=== PATIENT | female | born 1945 | race Caucasian/White ===

== ENCOUNTER 2021-01-10 12:26 | Outpatient (CLI) | payer MEDICARE, BC, SELFPAY ==
--- NOTE | 2021-01-10 | ECHO_ITS ---
Patient Info Name: Merly Hernández Age: 75 years : 1945 Gender: Female Ht: 64 in Wt: 163 lbs BSA: 1.85 m2 HR: 92 bpm BP: 151 / 82 mmHg Heart Rhythm: Sinus Rhythm Exam Date: 01/10/2021 1:22 PM Exam Location: [facility] Patient Status: Outpatient Admit Date: 01/10/2021 Staff Ordering Physician: OsielSreekanth MD Production Team Manager: Shauna Munoz RDCS Attending Provider: MateoSreekanth MD Exam Type: CA echo doppler color flow Study Info Indications R06.00 - Dyspnea, unspecified Complete two-dimensional, color flow and Doppler transthoracic echocardiogram is performed. Summary 1. Complete two-dimensional, color flow and Doppler transthoracic echocardiogram is performed. 2. Left ventricular chamber size, wall thickness, systolic and diastolic function are normal with no regional wall motion abnormalities with an estimated ejection fraction of 60-65%. Grade 1 diastolic dysfunction is noted. 3. There is mild tricuspid valve regurgitation. 4. No pulmonary hypertension, estimated pulmonary arterial systolic pressure is 26 mmHg. 5. Normal sinus rhythm. Left Ventricle Left ventricular chamber dimension is normal. Left ventricular systolic function is normal, estimated at 60-65%. There is no increased left ventricular wall thickness. Left ventricular septal wall motion is normal. The left ventricular diastolic function is normal. Left ventricular chamber size, wall thickness, systolic and diastolic function are normal with no regional wall motion abnormalities with an estimated ejection fraction of 60-65%. Grade 1 diastolic dysfunction is noted. Right Ventricle Right ventricular chamber dimension is normal. Right ventricular systolic function is normal. Left Atria Left atrial chamber dimension is normal. Right Atria Right atrial chamber dimension is normal. Aortic Valve The aortic valve is trileaflet. There is no aortic valve sclerosis. There is no aortic valve stenosis. There is no aortic valve regurgitation. Pulmonic Valve The pulmonic valve is normal. There is no pulmonic valve stenosis. There is no pulmonic regurgitation. Mitral Valve The mitral valve has normal leaflets. There is no mitral valve stenosis. There is trace mitral valve regurgitation. Tricuspid Valve The tricuspid valve leaflets are normal. There is no significant tricuspid valve stenosis. There is mild tricuspid valve regurgitation. No pulmonary hypertension, estimated pulmonary arterial systolic pressure is 26 mmHg. Pericardium/Pleural The pericardium appears normal. There is no pericardial effusion. Inferior Vena Cava Normal inferior vena cava with >50% collapse upon inspiration consistent with Empty right atrial pressure, 10 mmHg. Aorta The aortic root size at the sinus of Valsalva is normal. The prox ascending aorta size is normal. Left Ventricular Outflow Tract Name Value Normal LVOT 2D LVOT Diameter 1.6 cm LVOT Doppler LVOT Peak Gradient 5 mmHg LVOT Mean Gradient 2 mmHg LVOT VTI 25 cm
== END 2021-01-10 12:27 | disposition home or self-care (01) ==
PROVIDERS: PCP Internal Medicine; Visit Provider Internal Medicine
DX: R06.00 Dyspnea, unspecified (principal); I36.1 Nonrheumatic tricuspid (valve) insufficiency
CPT/HCPCS: 93306

== ENCOUNTER 2021-05-08 13:27 | Outpatient (CLI) | payer MEDICARE, BC, SELFPAY ==
--- NOTE | ~2021-05-08 | MR_ITS ---
EXAMINATION: MR brain/brain stem wo con DATE: 05/08/2021 14:27 INDICATION: Dizziness and giddiness. TECHNIQUE: Magnetic resonance imaging (MRI) of the brain and brainstem was performed without intraven ous contrast. Sequences included sagittal and axial T1-weighted FSE, axial diffusion-weighted FS EPI, axial T2*-weighted GRE, axial T2-weighted FLAIR Propeller, and axial T2-weighted Propeller. Apparent diffusion coefficient (ADC) maps were created. COMPARISON: None. FINDINGS: There are small old infarcts in left cerebellum. There is an old infarct in right caudate n ucleus. There are scattered areas of nonspecific increased T2-weighted signal intensity in the cerebr al white matter. There is no intracranial hemorrhage, acute infarction, or abnormal intracranial mass lesion. The ventricles are normal in size. There are likely changes of ocular lens replacement surge [place]. There is mild mucosal thickening in the paranasal sinuses. There are small mastoid effusions, r ight worse than left. IMPRESSION: 1. 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 2. Mild nonspecific cerebral white matter disease, which likely represents chronic small vessel ische ela disease. Reviewed, dictated and finalized at location B. UCT COORDINATOR IMPRESSION: 1. 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 2. 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
--- NOTE | ~2021-05-08 | US_ITS ---
EXAMINATION: US carotid duplex BI EXAM DATE: 05/08/2021 14:03 INDICATION: Dizziness and giddiness. TECHNIQUE: Grayscale, color and pulsed Doppler images of the cervical carotid arteries were obtained . The degree of vessel stenosis is placed in one of the following categories: normal, <50% stenosis, 50-69% stenosis, >=70% stenosis but less than near-occlusion, near-occlusion, or occlusion. Note that percent stenosis relative to normal distal artery lumen diameter is indirectly measured from velocit y measurements as described by Amando, et al. Radiology 2003; 229:340-346. There is no prior study fo r comparison. FINDINGS: RIGHT SIDE: Right common carotid artery peak systolic velocity (PSV in cm/s): 72 Right bulb/internal carotid artery peak systolic velocity (PSV in cm/s): 94 Right internal carotid artery end diastolic velocity (EDV in cm/s): 25 Right ICA/CCA peak systolic ratio: 1.3 Right external carotid artery peak systolic velocity (PSV in cm/s): 123 Right vertebral artery antegrade flow: yes There is minimal carotid bulb plaque. Velocity and Doppler waveforms in the common and internal carotid arteries is normal. LEFT SIDE: Left common carotid artery peak systolic velocity (PSV in cm/s): 89 Left bulb/internal carotid artery peak systolic velocity (PSV in cm/s): 120 Left internal carotid artery end diastolic velocity (EDV in cm/s): 37 Left ICA/CCA peak systolic ratio: 1.3 Left external carotid artery peak systolic velocity (PSV in cm/s): 135 Left vertebral artery antegrade flow: yes There is minimal carotid bulb plaque. Velocity and Doppler waveforms in the common and internal carotid arteries is normal. IMPRESSION: 1. Less than 50 percent stenosis in the right internal carotid artery. 2. Less than 50 percent stenosis in the left internal carotid artery. Reviewed, dictated and finalized at location A. EHOLD APPLIANCE MECHANIC
== END 2021-05-08 13:28 | disposition home or self-care (01) ==
LOC: ANHIMG 13:33
PROVIDERS: PCP Internal Medicine; Visit Provider Internal Medicine
DX: R42 Dizziness and giddiness (principal); R93.0 Abnormal findings on diagnostic imaging of skull and head, not elsewhere classified; I65.23 Occlusion and stenosis of bilateral carotid arteries
CPT/HCPCS: 70551; 93880

== ENCOUNTER 2024-12-31 10:45 | Outpatient (CLI) | payer MEDICARE, BC, SELFPAY ==
--- NOTE | ~2024-12-31 | CT_ITS ---
Clinical Indication: Unintentional weight loss CT Scan of the Chest, Abdomen, and Pelvis with Contrast: Technique: Contiguous sections were acquired throughout the chest, abdomen, and pelvis after intraven ous administration of 100 cc of Omnipaque 350. Dose reduction technique was used on this scan by andrea matting automated exposure control and iterative reconstruction technique. The dose-length product (DL P) was 355.63 mGy-cm. Findings: There is no evidence of any significant mediastinal, hilar or axillary lymphadenopathy. The mediastin al soft tissues and vascular structures appear normal. There is no evidence of pleural or pericardial effusion. The lungs are clear. No pulmonary nodules or infiltrates are noted. The liver, spleen, pancreas, adrenals and kidneys are within normal limits. Cholecystectomy clips are present. No evidence of aortic aneurysm. No lymphadenopathy. No bowel obstruction or bowel wall thickening. There is no evidence to suggest acute appendicitis. Urinary bladder is unremarkable. No pelvic mass seen. No ascites. Impression: No significant abnormalities seen. Reviewed, dictated and finalized at [facility]. Impression: No significant abnormalities seen.
--- OUTSIDE RECORDS SUMMARY | 2024-12-31 10:48 | XMS_ITS | Data Portability ---
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 Name Role Phone MOI ERNANDEZ Neurologist Assessment Encounter Date Assessment Date Assessment LastModified by Organization Details LastModified Time 09/08/2023 09/08/2023 Blood pressure currently controlled conservatively but she is not to take any cholesterol medicine she says I will see what Ortho has to say about her knee obtain all her old records she is actually seeking the opinion of a anil DELGADO specialist somewhere in [place] by telehealth I have asked her to get me the results of those visits if and when they occur rtc 4 months [email or web address] Not available 09/08/2023 21:52:17 12/01/2023 12/01/2023 [facility] neurology she has had a couple of community-based neurologist look at her and I think she needs a higher level of evaluation follow-up with me in 3 months [email or web address] Not available 12/01/2023 21:32:26 02/19/2024 02/19/2024 home health is out there now to do some physical therapy. She will see me in a couple of months I will await the neurologist opinion [email or web address] Not available 02/19/2024 22:55:30 10/12/2024 10/12/2024 PFTs because of her breathing difficulty modified barium swallow because of her swallowing complaints blood work will be ordered I will see her back in a month I have told her and her to call the Neurology Service at [place] [facility] where she says she was prescribed the Parkinson's medication and she needs to let them know that she is having problems apparently that physician did order EMG NCS and Merly has not perform those yet I have told her she needs to get those done she needs to let Neurology know what is going on in the fact that she stopped her Sinemet her blood pressure is controlled [email or web address] Not available 10/12/2024 13:35:33 Plan of Treatment Reminders Order Date Submit Date Provider Last Modified By Organization Details Last Modified Time Details Appointments None recorded. Lab ej Ab, qual, serum 2024 025 [facility], [address] [place] [address] 2, [place], [address], 15:12:25 MDA5 Ab, QN, line blot, serum 2024 025 [facility], [address] [place] [address] 2, [place], [address], 5 15:12:24 MIREILLE (antinucle ar antibodies ) screen, ifa, serum 2024 025 [facility], [address] [place] [address] 2, [place], [address], 5 15:12:19 unlisted lab - AChR all with reflex to musk 2024 025 [facility], [address] [place] [address] 2, [place], [address], 12:19:54 unlisted lab - AChR abs with reflex to musk 2024 025 [facility], [address] [place] [address] 2, [place], [address], 5 15:12:20 heavy metals panel, 24h urine 2024 025 [facility], [address] [place] [address] 2, [place], [address], 5 12:19:45 erythrocyt e sedimentat ion rate by westergren method 2024 025 [facility], [address] [facility], [facility] 2, [place], [address], 15:12:28 C reactive protein, QN, serum or plasma 2024 025 [facility], [facility], [facility] 2, [place], [address], 15:12:29 lipid panel, serum 2024 025 [facility], [facility], [facility] 2, [place], [address], 15:12:21 CMP, serum or plasma 2024 025 [facility], [facility], [facility] 2, [place], [address], 15:12:23 CBC w/ auto diff 2024 025 [facility], [address] [place] [address], [facility] 2, [place], [address], 15:12:27 unlisted lab - T4, free 2024 025 [facility], [address] [place] [address], [facility] 2, [place], [address], 15:12:22 TSH, ultra-sens itive, serum 2024 025 [facility], [address] [place] [address], [facility] 2, [place], [address], 15:12:26 T3, free, serum or plasma 2024 025 [facility], [facility], [facility] 2, [place], [address], 15:12:31 Referral None recorded. Procedures None recorded. Surgeries None recorded. Imaging [place], modified barium swallow study 2024 025 [facility], [address], [place], [address], 16:28:12 PFT, complete - With [facility] 2024 025 [facility], [address], [place], [address], 16:28:12 Medication Orders None recorded. Patient TargetsNo targets recorded. Patient Instructions Encounter Date Encounter Id Patient Instructions Last Modified By Organization Details Last Modified Time 10/12/2024 [id number] A healthy lifestyle: care instructions [email or web address] Not available 10/12/2024 13:16:19 Reason for Referral None Reported. 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 [facility] Not Available Not Available 10/12/2024 09:08:29 07/23/1907/23/2024 Magne sium [Mass /volu me] in Serum or Plasm a magnesium [mass/volume ] in serum or plasma 1.9 text: 1.8 - 2.4 mg/dL MAGNE SIUM 1.9 1.8 - 2.4 MG/DL 07/23 3:39 PM LAND SURVEYING MANAGER [facility] Not Available Not Available 10/12/2024 09:08:28 07/23/19 25 07/23/2024 Salic ylate s [Mass /volu me] in Serum or Plasm a salicylates [mass/volume ] in serum or plasma 0.8 text: mg/dL SALIC YLATE S 0.8 MG/DL 07/23 3:29 PM LAND SURVEYING MANAGER [facility] Not Available Not Available 10/12/2024 09:08:28 09/22/19 25 09/21/2024 Urina lysis macro (dips tick) panel - Urine color of urine YELLOW text: yellow COLOR (U) YELLO W YELLO W 09/21 6:59 PM CDT [facility] Not Available Not Available 10/12/2024 09:08:29 09/22/19 25 09/21/2024 Urina lysis macro (dips tick) panel - Urine clarity of urine CLEAR text: clear TRANS PAREN CY CLEAR CLEAR 09/21 6:59 PM CDT [facility] Not Available Not Available 10/12/2024 09:08:29 09/22/19 25 09/21/2024 Urina lysis macro (dips tick) panel - Urine specific gravity of urine 1.02 low: 1.01hi gh: 1.025 SPECI FIC GRAVI TY (U) 1.020 1.010 - 1.025 09/21 6:59 PM CDT [facility] Not Available Not Available 10/12/2024 09:08:29 09/22/19 25 09/21/2024 Urina lysis macro (dips tick) panel - Urine pH of urine 6 low: 5high: 8.5 U PH 6.0 5.0 - 8.5 09/21 6:59 PM CDT [facility] Not Available Not Available 10/12/2024 09:08:29 09/22/19 25 09/21/2024 Urina lysis macro (dips tick) panel - Urine leukocyte esterase [presence] in urine by test strip TRACE text: negati ve abnormal LEUKO CYTES (U) TRACE (A) NEGAT JAREN 09/21 6:59 PM CDT [facility] Not Available Not Available 10/12/2024 09:08:29 09/22/19 25 09/21/2024 Urina lysis macro (dips tick) panel - Urine nitrite [presence] in urine by test strip NEGATI VE text: negati ve NITRI EDDIE NEGAT JAREN NEGAT JAREN 09/21 6:[address] [facility] Not Available Not Available 10/12/2024 09:08:29 09/22/19 25 09/21/2024 Urina lysis macro (dips tick) panel - Urine protein [presence] in urine by automated test strip NEGATI VE text: negati ve PROTE IN RANDO M (U) NEGAT JAREN NEGAT JAREN 09/21 6:59 PM CDT [facility] Not Available Not Available 10/12/2024 09:08:29 09/22/19 25 09/21/2024 Urina lysis macro (dips tick) panel - Urine glucose [presence] in urine by automated test strip NEGATI VE text: negati ve GLUCO SE (U) NEGAT JAREN NEGAT JAREN 09/21 6:[address] [facility] Not Available Not Available 10/12/2024 09:08:29 09/22/19 25 09/21/2024 Urina lysis macro (dips tick) panel - Urine ketones [presence] in urine by automated test strip 80 text: negati ve abnormal KETON ES MG/DL (U) 80 (A) NEGAT JAREN 09/21 6:[address] [facility] Not Available Not Available 10/12/2024 09:08:29 09/22/19 25 09/21/2024 Urina lysis macro (dips tick) panel - Urine urobilinogen [units/volum e] in urine by test strip 0.2 text: 0.2 - 1.0 eu/dL UROBI LINOG EN 0.2 0.2 - 1.0 EU/DL 09/21 6:59 PM CDT [facility] Not Available Not Available 10/12/2024 09:08:29 09/22/19 25 09/21/2024 Urina lysis macro (dips tick) panel - Urine bilirubin.to abiola [presence] in urine by automated test strip NEGATI VE text: negati ve BILIR UBIN (U) NEGAT JAREN NEGAT JAREN 09/21 6:59 PM CDT [facility] Not Available Not Available 10/12/2024 09:08:29 09/22/1909/21/2024 Urina lysis macro (dips tick) panel - Urine erythrocytes [#/volume] in urine by automated test strip NEGATI VE text: negati ve BLOOD (U) NEGAT JAREN NEGAT JAREN 09/21 6:59 PM CDT [facility] Not Available Not Available 10/12/2024 09:08:29 09/22/1909/21/2024 Urina lysis macro (dips tick) panel - Urine interpretati on and review of laboratory results Abnorm al Not Available Not Available 09:08:29 09/22/1909/21/2024 Lacta te [Mole s/vol ume] in Serum or Plasm a lactate [moles/volum e] in serum or plasma 1.4 text: 0.5 - 2.0 mmol/L LACTI C ACID VENOU S 1.4 0.5 - 2.0 MMOL/ L 09/21 5:28 PM CDT [facility] Not Available Not Available 10/12/2024 09:08:29 09/22/1909/21/2024 Natri ureti c pepti de.B proho rmone N-Ter nicol [Mass /volu me] in Serum or Plasm a natriuretic peptide.B prohormone N-terminal [mass/volume ] in serum or plasma 76 pg/mL low: 0pg/mL high: 450pg/ mL PRO-B RAIN NATRI URETI C PEPTI DE 76 0 - 450 PG/ML 09/21 5:29 PM CDT [facility] Not Available Not Available 10/12/2024 09:08:29 09/22/1909/21/2024 Respi rator y syncy tial virus Ag [Pres ence] in Speci men by Immun oassa y specimen source identified JOSE CHAVARRIA AL SWAB SPECI MEN TYPE NASOP HARYN GEAL SWAB 09/21 4:57 PM CDT [facility] Not Available Not Available 10/12/2024 09:08:28 09/22/19 25 09/21/2024 Respi rator y syncy tial virus Ag [Pres ence] in Speci men by Immun oassa y respiratory syncytial virus Ag [presence] in specimen by immunofluore scence NEGATI VE text: negati ve RAPID RSV NEGAT JAREN NEGAT JAREN 09/21 5:29 PM CDT [facility] Not Available Not Available 10/12/2024 09:08:28 09/22/19 25 09/21/2024 Compr ehens jaren metab olic 2000 panel - Serum or Plasm a glucose [mass/volume ] in serum or plasma 101 text: 70 - 99 mg/dL high GLUCO SE 101 (H) 70 - 99 MG/DL 09/21 5:29 PM CDT [facility] Not Available Not Available 10/12/2024 09:08:28 09/22/19 25 09/21/2024 Compr ehens jaren metab olic 2000 panel - Serum or Plasm a urea nitrogen [mass/volume ] in serum or plasma 12 text: 7 - 18 mg/dL BUN 12 7 - 18 MG/DL 09/21 5:29 PM CDT [facility] Not Available Not Available 10/12/2024 09:08:28 09/22/19 25 09/21/2024 Compr ehens jaren metab olic 2000 panel - Serum or Plasm a creatinine [mass/volume ] in serum or plasma 0.74 text: 0.50 - 1.20 mg/dL CREAT ININE S/P/B 0.74 0.50 - 1.20 MG/DL 09/21 5:29 PM CDT [facility] Not Available Not Available 10/12/2024 09:08:28 09/22/19 25 09/21/2024 Compr ehens jaren metab olic 2000 panel - Serum or Plasm a sodium [moles/volum e] in serum or plasma 138 text: 136 - 145 mmol/L SODIU M S/P/B 138 136 - 145 MMOL/ L 09/21 5:29 PM CDT [facility] Not Available Not Available 10/12/2024 09:08:28 09/22/19 25 09/21/2024 Compr ehens jaren metab olic 1999 panel - Serum or Plasm a potassium [moles/volum e] in serum or plasma 3.8 text: 3.5 - 5.1 mmol/L POTAS SIUM S/P/B 3.8 3.5 - 5.1 MMOL/ L 09/21 5:29 PM CDT [facility] Not Available Not Available 10/12/2024 09:08:28 09/22/19 25 09/21/2024 Compr ehens jaren metab olic 1999 panel - Serum or Plasm a chloride [moles/volum e] in serum or plasma 103 text: 100 - 108 mmol/L CHLOR JEFFY S/P/B 103 100 - 108 MMOL/ L 09/21 5:29 PM CDT [facility] Not Available Not Available 10/12/2024 09:08:28 09/22/19 25 09/21/2024 Compr ehens jaren metab olic 1999 panel - Serum or Plasm a carbon dioxide, total [moles/volum e] in serum or plasma 28 text: 21.0 - 32.0 mmol/L CO2 28.0 21.0 - 32.0 MMOL/ L 09/21 5:29 PM CDT [facility] Not Available Not Available 10/12/2024 09:08:28 09/22/19 25 09/21/2024 Compr ehens jaren metab olic 1999 panel - Serum or Plasm a calcium [mass/volume ] in serum or plasma 9.1 text: 8.5 - 10.1 mg/dL CALCI UM S/P/B 9.1 8.5 - 10.1 MG/DL 09/21 5:29 PM CDT [facility] Not Available Not Available 10/12/2024 09:08:28 09/22/19 25 09/21/2024 Compr ehens jaren metab olic 2000 panel - Serum or Plasm a bilirubin.to abiola [mass/volume ] in serum or plasma 0.7 text: 0.2 - 1.2 mg/dL BILIR UBIN TOTAL S/P/B 0.7 0.2 - 1.2 MG/DL 09/21 5:29 PM CDT [facility] [employer] [facility] Not Available Not Available 10/12/2024 09:08:28 09/22/19 25 09/21/2024 Compr AT [employer] jaren metab olic 1999 panel - Serum or Plasm a protein [mass/volume ] in serum or plasma 7.2 text: 6.4 - 8.2 g/dL TOTAL PROTE IN S/P/B 7.2 6.4 - 8.2 G/DL 09/21 5:29 PM CDT [facility] Not Available Not Available 10/12/2024 09:08:28 09/22/1909/21/2024 Compr AT [employer] jaren metab olic 1999 panel - Serum or Plasm a albumin [mass/volume ] in serum or plasma 3.3 text: 3.4 - 5.0 g/dL low ALBUM IN S/P/B 3.3 (L) 3.4 - 5.0 G/DL 09/21 5:29 PM CDT [facility] [employer] [facility] Not Available Not Available 10/12/2024 09:08:28 09/22/1909/21/2024 Compr AT [employer] jaren metab olic 1999 panel - Serum or Plasm a aspartate aminotransfe rase [enzymatic activity/vol ume] in serum or plasma 24 U/L low: 15U/Lh igh: 37U/L AST 24 15 - 37 U/L 09/21 5:29 PM CDT [facility] Not Available Not Available 10/12/2024 09:08:28 09/22/19 25 09/21/2024 Compr AT [employer] jaren metab olic 1999 panel - Serum or Plasm a alanine aminotransfe rase [enzymatic activity/vol ume] in serum or plasma 25 U/L low: 14U/Lh igh: 55U/L ALT 25 14 - 55 U/L 04/08 /2025 5:29 PM CDT [facility] Not Available Not Available 10/12/2024 09:08:28 09/22/19 25 09/21/2024 Compr ehens jaren metab olic 1999 panel - Serum or Plasm a alkaline phosphatase [enzymatic activity/vol ume] in serum or plasma 89 U/L low: 50U/Lh igh: 136U/L ALKAL INE PHOSP HATAS E S/P/B 89 50 - 136 U/L 09/21 5:29 PM CDT [facility] Not Available Not Available 10/12/2024 09:08:28 09/22/19 25 09/21/2024 Compr ehens jaren metab olic 1999 panel - Serum or Plasm a anion gap in serum or plasma by calculation 7 text: 5.0 - 15.0 mmol/L ANION GAP 7.0 5.0 - 15.0 MMOL/ L 09/21 5:29 PM CDT [facility] Not Available Not Available 10/12/2024 09:08:28 09/22/19 25 09/21/2024 Compr ehens jaren metab olic 1999 panel - Serum or Plasm a urea nitrogen/cre atinine [mass ratio] in serum or plasma 16.2 low: 6high: 26 BUN CREAT ININE RATIO 16.2 6 - 26 09/21 5:29 PM CDT [facility] Not Available Not Available 10/12/2024 09:08:28 09/22/19 25 09/21/2024 Compr ehens jaren metab olic 1999 panel - Serum or Plasm a albumin/glob ulin [mass ratio] in serum or plasma 0.8 text: 1.0 - 2.5 ratio low A/G RATIO 0.8 (L) 1.0 - 2.5 RATIO 09/21 5:29 PM CDT [facility] Not Available Not Available 10/12/2024 09:08:28 09/22/19 25 09/21/2024 Compr ehens jaren metab olic 2000 panel - Serum or Plasm a glomerular filtration rate [volume rate/area] in serum, plasma or blood by creatinine-b ased formula (CKD-epi 2020)/1.73 sq M 82 text: >90 mL/min /1.73 M2 low GFR ESTIM ATE 82 (L) >90 ML/OR N/1.7 3 M2 09/21 5:29 PM CDT [facility] Not Available Not Available 10/12/2024 09:08:28 09/22/1909/21/2024 Compr ehens jaren metab olic 2000 panel - Serum or Plasm a interpretati on and review of laboratory results Abnorm al Not Available Not Available 09:08:28 09/22/1909/21/2024 CBC W Auto Diffe renti al panel - Blood leukocytes [#/volume] in blood by automated count 5.39 text: 4.50 - 11.00 x10'3/ uL WBC 5.39 4.50 - 11.00 x10'3 /uL 09/21 5:04 PM CDT [facility] Not Available Not Available 10/12/2024 09:08:28 09/22/1909/21/2024 CBC W Auto Diffe renti al panel - Blood erythrocytes [#/volume] in blood by automated count 5.04 text: 4.00 - 5.20 x10'6/ uL RBC 5.04 4.00 - 5.20 x10'6 /uL 09/21 5:04 PM CDT [facility] Not Available Not Available 10/12/2024 09:08:28 09/22/1909/21/2024 CBC W Auto Diffe renti al panel - Blood hemoglobin [mass/volume ] in blood 15.6 text: 12.0 - 16.0 g/dL HGB 15.6 12.0 - 16.0 G/DL 09/21 5:04 PM CDT [facility] Not Available Not Available 10/12/2024 09:08:28 09/22/1909/21/2024 CBC W Auto Diffe renti al panel - Blood hematocrit [volume fraction] of blood by calculation 46.1 % low: 38%hig h: 48% HCT 46.1 38.0 - 48.0 % 09/21 5:04 PM CDT [facility] Not Available Not Available 10/12/2024 09:08:28 09/22/1909/21/2024 CBC W Auto Diffe renti al panel - Blood MCV [entitic mean volume] in red blood cells 91.5 text: 80.0 - 100.0 fL MCV 91.5 80.0 - 100.0 FL 09/21 5:04 PM CDT [facility] Not Available Not Available 10/12/2024 09:08:28 09/22/19 25 09/21/2024 CBC W Auto Diffe renti al panel - Blood MCH [entitic mass] 31 pg low: 26pghi gh: 34pg MCH 31.0 26.0 - 34.0 PG 09/21 5:04 PM CDT [facility] Not Available Not Available 10/12/2024 09:08:28 09/22/1909/21/2024 CBC W Auto Diffe renti al panel - Blood MCHC [entitic mass/volume] in red blood cells 33.8 text: 31.0 - 37.0 g/dL MCHC 33.8 31.0 - 37.0 G/DL 09/21 5:04 PM CDT [facility] Not Available Not Available 10/12/2024 09:08:28 09/22/1909/21/2024 CBC W Auto Diffe renti al panel - Blood RDW 12.5 % low: 11.6%h igh: 14.8% RDW 12.5 11.6 - 14.8 % 09/21 5:04 PM CDT [facility] Not Available Not Available 10/12/2024 09:08:28 09/22/19 25 09/21/2024 CBC W Auto Diffe renti al panel - Blood platelets [#/volume] in blood 143 text: 130 - 400 x10'3/ uL PLT 143 130 - 400 x10'3 /uL 09/21 5:04 PM CDT [facility] Not Available Not Available 10/12/2024 09:08:28 09/22/19 25 09/21/2024 CBC W Auto Diffe renti al panel - Blood platelet [entitic mean volume] in blood 9.7 text: 7.0 - 12.0 fL MPV 9.7 7.0 - 12.0 FL 09/21 5:04 PM CDT [facility] Not Available Not Available 10/12/2024 09:08:28 09/22/19 25 09/21/2024 CBC W Auto Diffe renti al panel - Blood service comment AUTOMA DEB RBC MORPHO LOGY AND PLATEL ET EVALUA TION NORMAL CBC COMME NT AUTOM ATED RBC MORPH OLOGY AND PLATE LET EVALU ATION ANTONIO L 09/21 5:04 PM CDT [facility] Not Available Not Available 10/12/2024 09:08:28 09/22/1909/21/2024 CBC W Auto Diffe renti al panel - Blood neutrophils/ leukocytes in blood by automated count 43.9 % low: 40%hig h: 74% NEUTR OPHIL S % 43.9 40.0 - 74.0 % 09/21 5:04 PM CDT [facility] Not Available Not Available 10/12/2024 09:08:28 09/22/19 25 09/21/2024 CBC W Auto Diffe renti al panel - Blood lymphocytes/ leukocytes in blood by automated count 36.9 % low: 14%hig h: 46% LYMPH OCYTE S % 36.9 14.0 - 46.0 % 09/21 5:04 PM CDT [facility] Not Available Not Available 10/12/2024 09:08:28 09/22/1909/21/2024 CBC W Auto Diffe renti al panel - Blood monocytes/le ukocytes in blood by automated count 14.3 % low: 4%high : 13% high MONOC YTES % 14.3 (H) 4.0 - 13.0 % 09/21 5:04 PM CDT [facility] Not Available Not Available 10/12/2024 09:08:28 09/22/19 25 09/21/2024 CBC W Auto Diffe renti al panel - Blood eosinophils/ leukocytes in blood by automated count 3.5 % low: 0%high : 7% EOSIN OPHIL S 3.5 0.0 - 7.0 % 09/21 5:04 PM CDT [facility] Not Available Not Available 10/12/2024 09:08:28 09/22/19 25 09/21/2024 CBC W Auto Diffe renti al panel - Blood basophils/le ukocytes in blood by automated count 0.7 % low: 0%high : 3% BASOP HILS 0.7 0.0 - 3.0 % 09/21 5:04 PM CDT [facility] Not Available Not Available 10/12/2024 09:08:28 09/22/19 25 09/21/2024 CBC W Auto Diffe renti al panel - Blood immature granulocytes /leukocytes in blood by automated count 0.7 % low: 0%high : 0.43% high IMMAT URE GRANS % 0.7 (H) 0.0 - 0.43 % 09/21 5:04 PM CDT [facility] Not Available Not Available 10/12/2024 09:08:28 09/22/19 25 09/21/2024 CBC W Auto Diffe renti al panel - Blood nucleated erythrocytes /leukocytes [ratio] in blood 0 % NRBC % 0.0 % 09/21 5:04 PM CDT [facility] Not Available Not Available 10/12/2024 09:08:28 09/22/19 25 09/21/2024 CBC W Auto Diffe renti al panel - Blood neutrophils [#/volume] in blood 2.36 text: 1.69 - 7.81 x10'3/ uL ABS. NEUTR OPHIL S TOTAL 2.36 1.69 - 7.81 x10'3 /uL 09/21 5:04 PM CDT [facility] Not Available Not Available 10/12/2024 09:08:28 09/22/19 25 09/21/2024 CBC W Auto Diffe renti al panel - Blood lymphocytes [#/volume] in blood 1.99 text: 0.21 - 5.42 x10'3/ uL ABS. LYMPH OCYTE S 1.99 0.21 - 5.42 x10'3 /uL 09/21 5:04 PM CDT [facility] Not Available Not Available 10/12/2024 09:08:28 09/22/19 25 09/21/2024 CBC W Auto Diffe renti al panel - Blood monocytes [#/volume] in blood 0.77 text: 0.04 - 1.37 x10'3/ uL ABS. MONOC YTES 0.77 0.04 - 1.37 x10'3 /uL 09/21 5:04 PM CDT [facility] Not Available Not Available 10/12/2024 09:08:28 09/22/1909/21/2024 CBC W Auto Diffe renti al panel - Blood eosinophils [#/volume] in blood 0.19 text: 0.00 - 0.68 x10'3/ uL ABS. EOSIN OPHIL S 0.19 0.00 - 0.68 x10'3 /uL 09/21 5:04 PM CDT [facility] Not Available Not Available 10/12/2024 09:08:28 09/22/1909/21/2024 CBC W Auto Diffe renti al panel - Blood basophils [#/volume] in blood 0.04 text: 0.00 - 0.08 x10'3/ uL ABS. BASOP HILS 0.04 0.00 - 0.08 x10'3 /uL 09/21 5:04 PM CDT [facility] Not Available Not Available 10/12/2024 09:08:28 09/22/19 25 09/21/2024 CBC W Auto Diffe renti al panel - Blood immature granulocytes [#/volume] in blood 0.04 text: 0.00 - 0.06 x10'3/ uL ABS. IMMAT URE GRANU LOCYT ES 0.04 0.00 - 0.06 x10'3 /uL 09/21 5:04 PM CDT [facility] Not Available Not Available 10/12/2024 09:08:28 09/22/1909/21/2024 CBC W Auto Diffe renti al panel - Blood nucleated erythrocytes [#/volume] in blood 0 text: 0.00 - 0.01 x10'3/ uL ABS. NUCLE ATED RBC'S 0.00 0.00 - 0.01 x10'3 /uL 09/21 5:04 PM CDT [facility] Not Available Not Available 10/12/2024 09:08:28 09/22/1909/21/2024 CBC W Auto Diffe renti al panel - Blood interpretati on and review of laboratory results Abnorm al Not Available Not Available 09:08:28 10/13/1910/13/2024 MIREILLE BY IFA RFX TITER /CHRISTOFER GARCÍA MIREILLE by ifa rfx titer/patter n NEGATI VE Negat jaren <1:80 Borde rline 1:80 Posit jaren >1:80 ICAP nomen anahi re: AC-0 For more infor tracee n about Hep-2 cell patte rns use ANApa ttern s.org , the offic ial websi te for the Inter natio nal Conse nsus on Antin uclea r Antib liliana (MIREILLE) Patte rns (ICAP ). Not Available [facility] [address] [place] [address], [address], 11/03/2024 15:12:18 10/13/19 25 10/17/2024 ACHR ABS WITH REFLE X TO MUSK AChR binding abs, serum <0.07 nmol/ L 0.00-0 .24 Negat jaren: 0.00 - 0.24 Borde rline : 0.25 - 0.40 Posit jaren: >0.40 Not Available [facility] [address] [place], [address], 11/03/2024 15:12:19 10/13/19 25 10/18/2024 ACHR ALL WITH REFLE X TO MUSK AChR blocking abs, serum 19 % 0-25 Negat jaren: 0 - 25 Borde rline : 26 - 30 Posit jaren: >30 Not Available [facility] [address] [place], [address], 11/03/2024 15:12:21 10/13/19 25 10/18/2024 ACHR ALL WITH REFLE X TO MUSK AChR-modulat ing Ab 0 % 0-45 Inter preti ve Infor matio n: Negat jaren: 0 - 45% Posit jaren: > 45% No singl e value for AChR- modul ating antib liliana shoul d be used as a sole basis for diagn osis or respo nse to thera py. Not Available [facility] [address] [place], [address], 11/03/2024 15:12:21 10/13/19 25 10/18/2024 ACHR ALL WITH REFLE X TO MUSK reflex information Commen t Refle x test indic ated. Not Available [facility] [address] [place], [address], 11/03/2024 15:12:21 10/13/19 25 10/13/2024 LIPID PANEL cholesterol, total 213 mg/dL 100-19 9 above high normal Not Available [facility] [address] [place], [address], 11/03/2024 15:12:21 10/13/19 25 10/13/2024 LIPID PANEL triglyceride s 133 mg/dL 0-149 Not Available [facility] [address] [place], [address], 11/03/2024 15:12:21 10/13/19 25 10/13/2024 LIPID PANEL HDL cholesterol 75 mg/dL >39 Not Available [facility] [address] [place], [address], 11/03/2024 15:12:21 10/13/19 25 10/13/2024 LIPID PANEL VLDL cholesterol juan pablo 23 mg/dL 5-40 Not Available [facility] [address] [place], [address], 11/03/2024 15:12:21 10/13/19 25 10/13/2024 LIPID PANEL LDL chol calc ([facility]) 115 mg/dL 0-99 above high normal Not Available [facility] [address] [place], [address], 11/03/2024 15:12:21 10/13/19 25 10/13/2024 T4, FREE T4,free(dire ct) 1.43 NG/dL 0.82-1 .77 Not Available [facility] [address] [place] [address], [address], 11/03/2024 15:12:22 10/13/19 25 10/13/2024 COMP. METAB OLIC PANEL (14) glucose 97 mg/dL 70-99 Not Available [facility] [address] [place] [address], [address], 11/03/2024 15:12:23 10/13/19 25 10/13/2024 COMP. METAB OLIC PANEL (14) BUN 13 mg/dL 8-27 Not Available [facility] [address] [place] [address], [address], 11/03/2024 15:12:23 10/13/19 25 10/13/2024 COMP. METAB OLIC PANEL (14) creatinine 0.66 mg/dL 0.57-1 .00 Not Available [facility] [address] [place], [address], 11/03/2024 15:12:23 10/13/19 25 10/13/2024 COMP. METAB OLIC PANEL (14) eGFR 89 mL/mi n/1.7 3 >59 Not Available [facility] [address] [place], [address], 11/03/2024 15:12:23 10/13/19 25 10/13/2024 COMP. METAB OLIC PANEL (14) BUN/creatini ne ratio 20 12-28 Not Available [facility] [address] [place], [address], 11/03/2024 15:12:23 10/13/19 25 10/13/2024 COMP. METAB OLIC PANEL (14) sodium 144 mmol/ L 134-14 4 Not Available [facility] [address] [place], [address], 11/03/2024 15:12:23 10/13/19 25 10/13/2024 COMP. METAB OLIC PANEL (14) potassium 3.7 mmol/ L 3.5-5. 2 Not Available [facility] [address] [place], [address], 11/03/2024 15:12:23 10/13/19 25 10/13/2024 COMP. METAB OLIC PANEL (14) chloride 105 mmol/ L 96-106 Not Available [facility] [address] [place], [address], 11/03/2024 15:12:23 10/13/19 25 10/13/2024 COMP. METAB OLIC PANEL (14) carbon dioxide, total 20 mmol/ L 20-29 Not Available [facility] [address] [place], [address], 11/03/2024 15:12:23 10/13/19 25 10/13/2024 COMP. METAB OLIC PANEL (14) calcium 10.0 mg/dL 8.7-10 .3 Not Available [facility] [address] [place], [address], 11/03/2024 15:12:23 04/29/20 25 10/13/2024 COMP. METAB OLIC PANEL (14) protein, total 7.4 g/dL 6.0-8. 5 Not Available [facility] [address] [place], [address], 11/03/2024 15:12:23 10/13/19 25 10/13/2024 COMP. METAB OLIC PANEL (14) albumin 4.4 g/dL 3.8-4. 8 Not Available [facility] [address] [place], [address], 11/03/2024 15:12:23 10/13/19 25 10/13/2024 COMP. METAB OLIC PANEL (14) globulin, total 3.0 g/dL 1.5-4. 5 Not Available [facility] [address] [place], [address], 11/03/2024 15:12:23 10/13/19 25 10/13/2024 COMP. METAB OLIC PANEL (14) bilirubin, total 0.7 mg/dL 0.0-1. 2 Not Available [facility] [address] [place], [address], 11/03/2024 15:12:23 10/13/19 25 10/13/2024 COMP. METAB OLIC PANEL (14) alkaline phosphatase 101 IU/L 44-121 Not Available [facility] [address] [place], [address], 11/03/2024 15:12:23 10/13/19 25 10/13/2024 COMP. METAB OLIC PANEL (14) AST (SGOT) 14 IU/L 0-40 Not Available [facility] [address] [place], [address], 11/03/2024 15:12:23 10/13/19 25 10/13/2024 COMP. METAB OLIC PANEL (14) ALT (SGPT) 13 IU/L 0-32 Not Available [facility] [address] [place], [address], 11/03/2024 15:12:23 10/13/19 25 10/23/2024 MUSK ABS, SERUM musk abs, serum <1.0 Refer ence Range : Negat jaren: <1.0 Posit jaren: 1.0 or highe r This test was lidia gutierrez and its perfo rmanc e sherwin cteri stics deter mined by [facility]. It has not been clear ed or appro ian by the Food and Drug Admin istra tion. Not Available [facility] [address] [place], [address], 11/03/2024 15:12:24 10/13/19 25 10/16/2024 ANTI- MDA-5 AB (CADM -140) (RDL) anti-mda-5 Ab (cadm-140)(r dl) <20 units <20 Negat jaren: <20 Weak Posit jaren: 20 - 39 Moder ate Posit jaren: 40 - 80 Stron g Posit jaren: >80 Not Available [facility] [address] [place], [address], 11/03/2024 15:12:24 10/13/19 25 11/03/2024 ANTI- EJ AB (RDL) anti-ej Ab (rdl) NEGATI VE negati ve Not Available [facility] [address] [place], [address], 11/03/2024 15:12:25 10/13/19 25 10/13/2024 TSH TSH 1.290 uIU/m L 0.450- 4.500 Not Available [facility] [address] [place], [address], 11/03/2024 15:12:26 10/13/19 25 10/13/2024 CBC WITH DIFFE RENTI AL/PL ATELE T WBC 9.7 x10e3 /uL 3.4-10 .8 Not Available [facility] [address] [place], [address], 11/03/2024 15:12:27 10/13/19 25 10/13/2024 CBC WITH DIFFE RENTI AL/PL ATELE T RBC 5.52 x10e6 /uL 3.77-5 .28 above high normal Not Available [facility] [address] [place], [address], 11/03/2024 15:12:27 10/13/19 25 10/13/2024 CBC WITH DIFFE RENTI AL/PL ATELE T hemoglobin 17.0 g/dL 11.1-1 5.9 above high normal Not Available [facility] [address] [place], [address], 11/03/2024 15:12:27 10/13/19 25 10/13/2024 CBC WITH DIFFE RENTI AL/PL ATELE T hematocrit 51.9 % 34.0-4 6.6 above high normal Not Available [facility] [address] [place], [address], 11/03/2024 15:12:27 10/13/19 25 10/13/2024 CBC WITH DIFFE RENTI AL/PL ATELE T MCV 94 fL 79-97 Not Available [facility] [address] [place], [address], 11/03/2024 15:12:27 10/13/19 25 10/13/2024 CBC WITH DIFFE RENTI AL/PL ATELE T MCH 30.8 pg 26.6-3 3.0 Not Available [facility] [address] [place], [address], 11/03/2024 15:12:27 10/13/19 25 10/13/2024 CBC WITH DIFFE RENTI AL/PL ATELE T MCHC 32.8 g/dL 31.5-3 5.7 Not Available [facility] [address] [place], [address], 11/03/2024 15:12:27 10/13/19 25 10/13/2024 CBC WITH DIFFE RENTI AL/PL ATELE T RDW 12.6 % 11.7-1 5.4 Not Available [facility] [address] [place], [address], 11/03/2024 15:12:27 10/13/19 25 10/13/2024 CBC WITH DIFFE RENTI AL/PL ATELE T platelets 213 x10e3 /uL 150-45 0 Not Available [facility] [address] [place], [address], 11/03/2024 15:12:27 10/13/19 25 10/13/2024 CBC WITH DIFFE RENTI AL/PL ATELE T neutrophils 71 % notest ab. Not Available [facility] [address] [place], [address], 11/03/2024 15:12:27 10/13/19 25 10/13/2024 CBC WITH DIFFE RENTI AL/PL ATELE T lymphs 16 % notest ab. Not Available [facility] [address] [place], [address], 11/03/2024 15:12:27 10/13/19 25 10/13/2024 CBC WITH DIFFE RENTI AL/PL ATELE T monocytes 11 % notest ab. Not Available [facility] [address] [place], [address], 11/03/2024 15:12:27 10/13/19 25 10/13/2024 CBC WITH DIFFE RENTI AL/PL ATELE T eos 1 % notest ab. Not Available [facility] [address] [place], [address], 11/03/2024 15:12:27 10/13/19 25 10/13/2024 CBC WITH DIFFE RENTI AL/PL ATELE T basos 1 % notest ab. Not Available [facility] [address] [place], [address], 11/03/2024 15:12:27 10/13/19 25 10/13/2024 CBC WITH DIFFE RENTI AL/PL ATELE T neutrophils (absolute) 6.9 x10e3 /uL 1.4-7. 0 Not Available [facility] [address] [place], [address], 11/03/2024 15:12:27 10/13/19 25 10/13/2024 CBC WITH DIFFE RENTI AL/PL ATELE T lymphs (absolute) 1.6 x10e3 /uL 0.7-3. 1 Not Available [facility] [address] [place], [address], 11/03/2024 15:12:27 10/13/19 25 10/13/2024 CBC WITH DIFFE RENTI AL/PL ATELE T monocytes(ab solute) 1.0 x10e3 /uL 0.1-0. 9 above high normal Not Available [facility] [address] [place], [address], 11/03/2024 15:12:27 10/13/19 25 10/13/2024 CBC WITH DIFFE RENTI AL/PL ATELE T eos (absolute) 0.1 x10e3 /uL 0.0-0. 4 Not Available [facility] [address] [place], [address], 11/03/2024 15:12:27 10/13/19 25 10/13/2024 CBC WITH DIFFE RENTI AL/PL ATELE T baso (absolute) 0.1 x10e3 /uL 0.0-0. 2 Not Available [facility] [address] [place], [address], 11/03/2024 15:12:27 10/13/19 25 10/13/2024 CBC WITH DIFFE RENTI AL/PL ATELE T immature granulocytes 0 % notest ab. Not Available [facility] [address] [place], [address], 11/03/2024 15:12:27 10/13/19 25 10/13/2024 CBC WITH DIFFE RENTI AL/PL ATELE T immature grans (abs) 0.0 x10e3 /uL 0.0-0. 1 Not Available [facility] [address] [place], [address], 11/03/2024 15:12:27 10/13/19 25 10/13/2024 SEDIM ENTAT ION RATE- WESTE RGREN sedimentatio n rate-westerg angela 22 mm/HR 0-40 Not Available [facility] [address] [place], [address], 11/03/2024 15:12:28 10/13/19 25 10/13/2024 C-ELIDA CTIVE PROTE IN, QUANT C-reactive protein, quant <1 Not Available [facility] [address] [place], [address], 11/03/2024 15:12:29 10/13/19 25 10/13/2024 HEAVY METAL S PROFI LE, URINE lead, urine 1 ug/L 0-49 Detec tion Limit = 1 Not Available [facility] [address] [place], [address], 11/03/2024 15:12:30 10/13/19 25 10/13/2024 HEAVY METAL S PROFI LE, URINE lead, urine (24 HR) 2 ug/24 _HR 0-80 Mera tion Thera py: <600 (Afte r 1 g EDTA IV or 2 g DMSA PO) Not Available [facility] [address] [place], [address], 11/03/2024 15:12:30 10/13/19 25 10/13/2024 HEAVY METAL S PROFI LE, URINE mercury, urine 1 ug/L 0-19 Detec tion Limit = 1 Not Available [facility] [address] [place], [address], 11/03/2024 15:12:30 10/13/19 25 10/13/2024 HEAVY METAL S PROFI LE, URINE mercury,urin e 24 HR 2 ug/24 _HR 0-20 Not Available [facility] [address] [place], [address], 11/03/2024 15:12:30 10/13/19 25 10/14/2024 HEAVY METAL S PROFI LE, URINE creatinine(c rt),U 2.30 g/L 0.30-3 .00 Detec tion Limit = 0.10 Not Available [facility] [address] [place], [address], 11/03/2024 15:12:30 10/13/19 25 10/14/2024 HEAVY METAL S PROFI LE, URINE lead/creat. ratio 0 ug/g_ creat 0-49 Envir onmen abiola Expos ure: < 50 Not Available [facility] [address] [place], [address], 11/03/2024 15:12:30 10/13/19 25 10/14/2024 HEAVY METAL S PROFI LE, URINE mercury/crea t. ratio 0 ug/g_ creat 0-4 Envir onmen abiola Expos ure: < 5 Occup ation al Expos ure: LOYD 20 Not Available [facility] [address] [place], [address], 11/03/2024 15:12:30 10/13/19 25 10/19/2024 HEAVY METAL S PROFI LE, URINE arsenic (total),U 50 ug/L 0-9 above high normal Detec tion Limit = 10 Not Available [facility] [address] [place] [address], [address], 11/03/2024 15:12:30 10/13/19 25 10/19/2024 HEAVY METAL S PROFI LE, URINE (total)/brand representative ratio 22 ug/g_ creat Not Available [facility] [address] [facility], [place], [address], 11/03/2024 15:12:30 10/13/1910/19/2024 HEAVY METAL S PROFI LE, URINE arsenic,urin e 24 HR 92 ug/24 _HR 0-50 above high normal Not Available [facility] [address] [place] [address], [address], 11/03/2024 15:12:30 10/13/1910/19/2024 JOSE GUADALUPE IC, TOXIC SPECI ES, URINE please note: Commen t Seafo od consu mptio n 2-3 days prior to speci men colle ction can marke dly eleva te level s of total jose guadalupe ic in urine . This dieta ry form of jose guadalupe ic is non-t oxic and is compr ised prima rily of jose guadalupe obeta ine and jose guadalupe ochol ine. For monit oring expos ure to the toxic forms of jose guadalupe ic, the test for Jose Guadalupe ic, total toxic speci es is appro priat e. Toxic speci es of jose guadalupe ic inclu de inorg anic eleme ntal jose guadalupe ic (Arse clarence (III) and Jose Guadalupe ic (V)) and methy lated metab olite s (mono methy larso clarence acid (MMA) and dimet hylar sinic acid (DMA) ). All measu remen ts are expre ssed as the Jose Guadalupe ic compo nent only. Total Toxic Speci es ----- ----- ----- ----- Antonio l (Unex posed Popul ation ): Below detec tion limit s Value s below detec tion limit are repor deb as < the detec tion limit . Biolo gical Expos ure Index (LOYD) : 35.0 ug/L ([place]) Jose Guadalupe ic speci ation perfo rmed by teja linares chrom atogr aphy with induc tivel y-cou pled plasm a/mas s spect romet ry (HPLC -ICP/ MS). This test was lidia gutierrez and its perfo rmanc e sherwin cteri stics deter mined by [employer] [facility]. It has not been clear ed or appro ian by the Food and Drug Admin istra tion. Not Available [facility] [address] [place], [address], 11/03/2024 15:12:31 10/13/1910/25/2024 JOSE GUADALUPE IC, TOXIC SPECI ES, URINE arsenic, inorganic <10.0 ug/L Not Available [facility] [address] [place], [address], 11/03/2024 15:12:31 10/13/1910/25/2024 JOSE GUADALUPE IC, TOXIC SPECI ES, URINE arsenic, mma <5.0 Not Available [facility] [address] [place], [address], 11/03/2024 15:12:31 10/13/19 25 10/25/2024 JOSE GUADALUPE IC, TOXIC SPECI ES, URINE arsenic, dma <5.0 Not Available [facility] [address] [place], [address], 11/03/2024 15:12:31 10/13/19 25 10/25/2024 JOSE GUADALUPE IC, TOXIC SPECI ES, URINE arsenic, total toxic <20.0 Not Available [facility] [address] [place], [address], 11/03/2024 15:12:31 10/13/19 25 10/13/2024 TRIIO DOTHY BALWINDER E (T3), FREE triiodothyro nine (T3), free 2.9 pg/mL 2.0-4. 4 Not Available [facility] [address] [facility], [place], [address], 11/03/2024 15:12:31 11/19/19 25 11/18/2024 Lacta te [Mole s/vol ume] in Serum or Plasm a lactate [moles/volum e] in serum or plasma 1.3 text: 0.5 - 2.0 mmol/L Not Available Not Available 11/18/2024 10:36:37 11/19/19 25 11/18/2024 Aceto ne [Pres ence] in Blood acetone [presence] in blood NEGATI VE text: negati ve Not Available Not Available 11/18/2024 10:36:37 11/19/19 25 11/18/2024 Urina lysis macro (dips tick) panel - Urine color of urine LIGHT YELLOW text: yellow abnormal Not Available Not Available 11/18/2024 10:36:37 11/19/19 25 11/18/2024 Urina lysis macro (dips tick) panel - Urine clarity of urine CLEAR text: clear Not Available Not Available 11/18/2024 10:36:37 11/19/19 25 11/18/2024 Urina lysis macro (dips tick) panel - Urine specific gravity of urine 1.009 low: 1.001h igh: 1.03 Not Available Not Available 11/18/2024 10:36:37 11/19/19 25 11/18/2024 Urina lysis macro (dips tick) panel - Urine pH of urine 6.5 low: 5high: 9 Not Available Not Available 11/18/2024 10:36:37 11/19/19 25 11/18/2024 Urina lysis macro (dips tick) panel - Urine leukocyte esterase [presence] in urine by test strip 1+ text: negati ve abnormal Not Available Not Available 11/18/2024 10:36:37 11/19/19 25 11/18/2024 Urina lysis macro (dips tick) panel - Urine nitrite [presence] in urine by test strip NEGATI VE text: negati ve Not Available Not Available 11/18/2024 10:36:37 11/19/19 25 11/18/2024 Urina lysis macro (dips tick) panel - Urine protein [presence] in urine by automated test strip NEGATI VE text: negati ve Not Available Not Available 11/18/2024 10:36:37 11/19/19 25 11/18/2024 Urina lysis macro (dips tick) panel - Urine glucose [presence] in urine by automated test strip NORMAL text: normal Not Available Not Available 11/18/2024 10:36:37 11/19/19 25 11/18/2024 Urina lysis macro (dips tick) panel - Urine ketones [presence] in urine by automated test strip NEGATI VE text: negati ve Not Available Not Available 11/18/2024 10:36:37 11/19/19 25 11/18/2024 Urina lysis macro (dips tick) panel - Urine urobilinogen [units/volum e] in urine by test strip NORMAL text: normal eu/dL Not Available Not Available 11/18/2024 10:36:37 11/19/19 25 11/18/2024 Urina lysis macro (dips tick) panel - Urine bilirubin.to abiola [presence] in urine by automated test strip NEGATI VE text: negati ve Not Available Not Available 11/18/2024 10:36:37 11/19/19 25 11/18/2024 Urina lysis macro (dips tick) panel - Urine erythrocytes [#/volume] in urine by automated test strip NEGATI VE text: negati ve Not Available Not Available 11/18/2024 10:36:37 11/19/19 25 11/18/2024 Urina lysis macro (dips tick) panel - Urine urine microscopic URINE MICROS COPIC TO FOLLOW . Not Available Not Available 10:36:37 11/19/19 25 11/18/2024 Urina lysis macro (dips tick) panel - Urine interpretati on and review of laboratory results Abnorm al Not Available Not Available 10:36:37 11/19/19 25 11/18/2024 Natri ureti c pepti de.B proho rmone N-Ter nicol [Mass /volu me] in Serum or Plasm a natriuretic peptide.B prohormone N-terminal [mass/volume ] in serum or plasma 84 pg/mL low: 0pg/mL high: 450pg/ mL CUT POINT S ESTAB LISKATIA D BY LYLE EASTMAN ON NT PROBN P (ICON ) STUDY (2005 ). AGE INDEP ENDEN T: <300 PG/ML HAS A 99% NEGAT JAREN PREDI CTIVE VALUE FOR EXCLU DING ACUTE CHF <50 YEARS : >450 PG/ML IS CONSI STENT WITH ACUTE CHF 50-75 YEARS : >900 PG/ML IS CONSI STENT WITH ACUTE CHF >75 YEARS : >1800 PG/ML IS CONSI STENT WITH ACUTE CHF IN PATIE NTS WITH RENAL INSUF FICIE NCY (GFR <60), >1200 PG/ML YIELD S A DIAGN OSTIC SENSI TIVIT Y AND SPECI FICIT Y OF 89% AND 72% FOR ACUTE CHF. Not Available Not Available 11/18/2024 10:36:37 11/19/19 25 11/18/2024 Creat ine kinas e [Enzy matic activ ity/v olume ] in Serum or Plasm a creatine kinase [enzymatic activity/vol ume] in serum or plasma 31 U/L low: 35U/Lh igh: 232U/L low Not Available Not Available 11/18/2024 10:36:37 11/19/19 25 11/18/2024 Creat ine kinas e [Enzy matic activ ity/v olume ] in Serum or Plasm a interpretati on and review of laboratory results Abnorm al Not Available Not Available 10:36:37 11/19/19 25 11/18/2024 Compr ehens jaren metab olic 1999 panel - Serum or Plasm a glucose [mass/volume ] in serum or plasma 106 text: 70 - 99 mg/dL high Not Available Not Available 11/18/2024 10:36:37 11/19/19 25 11/18/2024 Compr ehens jaren metab olic 1999 panel - Serum or Plasm a urea nitrogen [mass/volume ] in serum or plasma 8 text: 7 - 18 mg/dL Not Available Not Available 11/18/2024 10:36:37 11/19/19 25 11/18/2024 Compr ehens jaren metab olic 1999 panel - Serum or Plasm a creatinine [mass/volume ] in serum or plasma 0.72 text: 0.50 - 1.20 mg/dL Not Available Not Available 11/18/2024 10:36:37 11/19/1911/18/2024 Compr AT [employer] jaren Quantance olic 1999 panel - Serum or Plasm a sodium [moles/volum e] in serum or plasma 138 text: 136 - 145 mmol/L Not Available Not Available 11/18/2024 10:36:37 11/19/19 25 11/18/2024 Compr AT [employer] jaren metab olic 1999 panel - Serum or Plasm a potassium [moles/volum e] in serum or plasma 3.6 text: 3.5 - 5.1 mmol/L Not Available Not Available 11/18/2024 10:36:37 11/19/19 25 11/18/2024 Compr [employer] jaren Quantance olic 2000 panel - Serum or Plasm a chloride [moles/volum e] in serum or plasma 102 text: 100 - 108 mmol/L Not Available Not Available 11/18/2024 10:36:37 11/19/19 25 11/18/2024 Compr [employer]o jaren Quantance olic 1999 panel - Serum or Plasm a carbon dioxide, total [moles/volum e] in serum or plasma 29.5 text: 21.0 - 32.0 mmol/L Not Available Not Available 11/18/2024 10:36:37 11/19/19 25 11/18/2024 Compr Unsilo jaren Quantance olic 1999 panel - Serum or Plasm a calcium [mass/volume ] in serum or plasma 9.6 text: 8.5 - 10.1 mg/dL Not Available Not Available 11/18/2024 10:36:37 11/19/19 25 11/18/2024 Compr AT [employer] jaren Quantance olic 1999 panel - Serum or Plasm a bilirubin.to abiola [mass/volume ] in serum or plasma 1.2 text: 0.2 - 1.2 mg/dL THIS ASSAY IS NOT RECOM BRYN D FOR PATIE NTS UNDER GOING TREAT MENT WITH ELTRO MBOPA G DUE TO THE POTEN TIAL FOR FALSE LY ELEVA DEB RESUL TS. Not Available Not Available 11/18/2024 10:36:37 11/19/19 25 11/18[facility] 1999 panel - Serum or Plasm a protein [mass/volume ] in serum or plasma 7.7 text: 6.4 - 8.2 g/dL Not Available Not Available 11/18/2024 10:36:37 11/19/19 25 11/18/2024 [facility] jaren [facility] 1999 panel - Serum or Plasm a albumin [mass/volume ] in serum or plasma 3.9 text: 3.4 - 5.0 g/dL Not Available Not Available 11/18/2024 10:36:37 11/19/19 25 11/18/2024 [facility] jaren [facility] 1999 panel - Serum or Plasm a aspartate aminotransfe rase [enzymatic activity/vol ume] in serum or plasma 16 U/L low: 15U/Lh igh: 37U/L Not Available Not Available 11/18/2024 10:36:37 11/19/19 25 11/18/2024 [facility] jaren [facility] 1999 panel - Serum or Plasm a alanine aminotransfe rase [enzymatic activity/vol ume] in serum or plasma 20 U/L low: 14U/Lh igh: 55U/L Not Available Not Available 11/18/2024 10:36:37 11/19/19 25 11/18/2024 [facility]aren Quantance [facility] 1999 panel - Serum or Plasm a alkaline phosphatase [enzymatic activity/vol ume] in serum or plasma 94 U/L low: 50U/Lh igh: 136U/L Not Available Not Available 11/18/2024 10:36:37 11/19/19 25 11/18/2024 [facility] 1999 panel - Serum or Plasm a anion gap in serum or plasma by calculation 6.5 text: 5.0 - 15.0 mmol/L Not Available Not Available 11/18/2024 10:36:37 11/19/19 25 11/18/2024 [facility] Quantance [facility] 1999 panel - Serum or Plasm a urea nitrogen/cre atinine [mass ratio] in serum or plasma 11.1 low: 6high: 26 Not Available Not Available 11/18/2024 10:36:37 11/19/19 25 11/18/2024 [facility] 1999 panel - Serum or Plasm a albumin/glob ulin [mass ratio] in serum or plasma 1 text: 1.0 - 2.5 ratio Not Available Not Available 11/18/2024 10:36:37 11/19/19 25 11/18/2024 [facility] AT [employer] jaren metab ol 1999 panel - Serum or Plasm a glomerular filtration rate [volume rate/area] in serum, plasma or blood by creatinine-b ased formula (CKD-epi 2020)/1.73 sq M 84 text: >90 mL/min /1.73 M2 low NOTE: eGFR is not calcu lated for patie nts <18 years of age. This is an estim ated GFR calcu latio n using the new CKD EPI creat inine equat ion witho ut race and so does not requi re a corre ction facto r for race. This estim ated GFR shoul d not be used for calcu latin g drug doses . Not Available Not Available 11/18/2024 10:36:37 11/19/19 25 11/18/2024 [facility] Unsilo jaern metab olic 1999 panel - Serum or Plasm a interpretati on and review of laboratory results Abnorm al Not Available Not Available 10:36:37 11/19/19 25 11/18/2024 CBC W Auto Diffe renti al panel - Blood leukocytes [#/volume] in blood by automated count 6.36 text: 4.50 - 11.00 x10'3/ uL Not Available Not Available 11/18/2024 10:36:37 11/19/19 25 11/18/2024 CBC W Auto Diffe renti al panel - Blood erythrocytes [#/volume] in blood by automated count 5.6 text: 4.00 - 5.20 x10'6/ uL high Not Available Not Available 11/18/2024 10:36:37 11/19/19 25 11/18/2024 CBC W Auto Diffe renti al panel - Blood hemoglobin [mass/volume ] in blood 17.2 text: 12.0 - 16.0 g/dL high Not Available Not Available 11/18/2024 10:36:37 11/19/19 25 11/18/2024 CBC W Auto Diffe renti al panel - Blood hematocrit [volume fraction] of blood by calculation 51.5 % low: 38%[facility] h: 48% high Not Available Not Available 11/18/2024 10:36:37 11/19/19 25 11/18/2024 CBC W Auto Diffe renti al panel - Blood MCV [entitic mean volume] in red blood cells 92 text: 80.0 - 100.0 fL Not Available Not Available 11/18/2024 10:36:37 11/19/19 25 11/18/2024 CBC W Auto Diffe renti al panel - Blood MCH [entitic mass] 30.7 pg low: 26pghi gh: 34pg Not Available Not Available 11/18/2024 10:36:37 11/19/19 25 11/18/2024 CBC W Auto Diffe renti al panel - Blood MCHC [entitic mass/volume] in red blood cells 33.4 text: 31.0 - 37.0 g/dL Not Available Not Available 11/18/2024 10:36:37 11/19/19 25 11/18/2024 CBC W Auto Diffe renti al panel - Blood RDW 12.8 % low: 11.6%h igh: 14.8% Not Available Not Available 11/18/2024 10:36:37 11/19/19 25 11/18/2024 CBC W Auto Diffe renti al panel - Blood platelets [#/volume] in blood 208 text: 130 - 400 x10'3/ uL Not Available Not Available 11/18/2024 10:36:37 11/19/19 25 11/18/2024 CBC W Auto Diffe renti al panel - Blood platelet [entitic mean volume] in blood 9.7 text: 7.0 - 12.0 fL Not Available Not Available 11/18/2024 10:36:37 11/19/19 25 11/18/2024 CBC W Auto Diffe renti al panel - Blood service comment AUTOMA DEB RBC MORPHO LOGY AND PLATEL ET EVALUA TION NORMAL Not Available Not Available 10:36:37 11/19/19 25 11/18/2024 CBC W Auto Diffe renti al panel - Blood neutrophils/ leukocytes in blood by automated count 73.1 % low: 40%hig h: 74% Not Available Not Available 11/18/2024 10:36:37 11/19/19 25 11/18/2024 CBC W Auto Diffe renti al panel - Blood lymphocytes/ leukocytes in blood by automated count 14.9 % low: 14%hig h: 46% Not Available Not Available 11/18/2024 10:36:37 11/19/19 25 11/18/2024 CBC W Auto Diffe renti al panel - Blood monocytes/le ukocytes in blood by automated count 9 % low: 4%high : 13% Not Available Not Available 11/18/2024 10:36:37 11/19/19 25 11/18/2024 CBC W Auto Diffe renti al panel - Blood eosinophils/ leukocytes in blood by automated count 1.6 % low: 0%high : 7% Not Available Not Available 11/18/2024 10:36:37 11/19/19 25 11/18/2024 CBC W Auto Diffe renti al panel - Blood basophils/le ukocytes in blood by automated count 0.8 % low: 0%high : 3% Not Available Not Available 11/18/2024 10:36:37 11/19/19 25 11/18/2024 CBC W Auto Diffe renti al panel - Blood immature granulocytes /leukocytes in blood by automated count 0.6 % low: 0%high : 0.43% high Not Available Not Available 11/18/2024 10:36:37 11/19/19 25 11/18/2024 CBC W Auto Diffe renti al panel - Blood nucleated erythrocytes /leukocytes [ratio] in blood 0 % Not Available Not Available 10/2024 10:36:37 11/19/19 25 11/18/2024 CBC W Auto Diffe renti al panel - Blood neutrophils [#/volume] in blood 4.65 text: 1.69 - 7.81 x10'3/ uL Not Available Not Available 11/18/2024 10:36:37 11/19/19 25 11/18/2024 CBC W Auto Diffe renti al panel - Blood lymphocytes [#/volume] in blood 0.95 text: 0.21 - 5.42 x10'3/ uL Not Available Not Available 11/18/2024 10:36:37 11/19/19 25 11/18/2024 CBC W Auto Diffe renti al panel - Blood monocytes [#/volume] in blood 0.57 text: 0.04 - 1.37 x10'3/ uL Not Available Not Available 11/18/2024 10:36:37 11/19/19 25 11/18/2024 CBC W Auto Diffe renti al panel - Blood eosinophils [#/volume] in blood 0.1 text: 0.00 - 0.68 x10'3/ uL Not Available Not Available 11/18/2024 10:36:37 11/19/19 25 11/18/2024 CBC W Auto Diffe renti al panel - Blood basophils [#/volume] in blood 0.05 text: 0.00 - 0.08 x10'3/ uL Not Available Not Available 11/18/2024 10:36:37 11/19/19 25 11/18/2024 CBC W Auto Diffe renti al panel - Blood immature granulocytes [#/volume] in blood 0.04 text: 0.00 - 0.06 x10'3/ uL Not Available Not Available 11/18/2024 10:36:37 11/19/19 25 11/18/2024 CBC W Auto Diffe renti al panel - Blood nucleated erythrocytes [#/volume] in blood 0 text: 0.00 - 0.01 x10'3/ uL Not Available Not Available 11/18/2024 10:36:37 11/19/19 25 11/18/2024 CBC W Auto Diffe renti al panel - Blood interpretati on and review of laboratory results Abnorm al Not Available Not Available 10:36:37 11/19/1911/18/2024 Urina lysis macro (dips tick) panel - Urine color of urine LIGHT YELLOW text: yellow abnormal Not Available Not Available 11/18/2024 10:05:15 11/19/19 25 11/18/2024 Urina lysis macro (dips tick) panel - Urine clarity of urine CLEAR text: clear Not Available Not Available 11/18/2024 10:05:15 11/19/19 25 11/18/2024 Urina lysis macro (dips tick) panel - Urine specific gravity of urine 1.009 low: 1.001h igh: 1.03 Not Available Not Available 11/18/2024 10:05:15 11/19/19 25 11/18/2024 Urina lysis macro (dips tick) panel - Urine pH of urine 6.5 low: 5high: 9 Not Available Not Available 11/18/2024 10:05:15 11/19/19 25 11/18/2024 Urina lysis macro (dips tick) panel - Urine leukocyte esterase [presence] in urine by test strip 1+ text: negati ve abnormal Not Available Not Available 11/18/2024 10:05:15 11/19/19 25 11/18/2024 Urina lysis macro (dips tick) panel - Urine nitrite [presence] in urine by test strip NEGATI VE text: negati ve Not Available Not Available 11/18/2024 10:05:15 11/19/19 25 11/18/2024 Urina lysis macro (dips tick) panel - Urine protein [presence] in urine by automated test strip NEGATI VE text: negati ve Not Available Not Available 11/18/2024 10:05:15 11/19/19 25 11/18/2024 Urina lysis macro (dips tick) panel - Urine glucose [presence] in urine by automated test strip NORMAL text: normal Not Available Not Available 11/18/2024 10:05:15 11/19/19 25 11/18/2024 Urina lysis macro (dips tick) panel - Urine ketones [presence] in urine by automated test strip NEGATI VE text: negati ve Not Available Not Available 11/18/2024 10:05:15 11/19/19 25 11/18/2024 Urina lysis macro (dips tick) panel - Urine urobilinogen [units/volum e] in urine by test strip NORMAL text: normal eu/dL Not Available Not Available 11/18/2024 10:05:15 11/19/19 25 11/18/2024 Urina lysis macro (dips tick) panel - Urine bilirubin.to abiola [presence] in urine by automated test strip NEGATI VE text: negati ve Not Available Not Available 11/18/2024 10:05:15 11/19/19 25 11/18/2024 Urina lysis macro (dips tick) panel - Urine erythrocytes [#/volume] in urine by automated test strip NEGATI VE text: negati ve Not Available Not Available 11/18/2024 10:05:15 11/19/19 25 11/18/2024 Urina lysis macro (dips tick) panel - Urine urine microscopic URINE MICROS COPIC TO FOLLOW . Not Available Not Available 10:05:15 11/19/19 25 11/18/2024 Urina lysis macro (dips tick) panel - Urine interpretati on and review of laboratory results Abnorm al Not Available Not Available 10:05:15 11/19/19 25 11/18/2024 CBC W Auto Diffe renti al panel - Blood leukocytes [#/volume] in blood by automated count 6.36 text: 4.50 - 11.00 x10'3/ uL Not Available Not Available 11/18/2024 10:05:15 11/19/19 25 11/18/2024 CBC W Auto Diffe renti al panel - Blood erythrocytes [#/volume] in blood by automated count 5.6 text: 4.00 - 5.20 x10'6/ uL high Not Available Not Available 11/18/2024 10:05:15 11/19/19 25 11/18/2024 CBC W Auto Diffe renti al panel - Blood hemoglobin [mass/volume ] in blood 17.2 text: 12.0 - 16.0 g/dL high Not Available Not Available 11/18/2024 10:05:15 11/19/19 25 11/18/2024 CBC W Auto Diffe renti al panel - Blood hematocrit [volume fraction] of blood by calculation 51.5 % low: 38%hig h: 48% high Not Available Not Available 11/18/2024 10:05:15 11/19/19 25 11/18/2024 CBC W Auto Diffe renti al panel - Blood MCV [entitic mean volume] in red blood cells 92 text: 80.0 - 100.0 fL Not Available Not Available 11/18/2024 10:05:15 11/19/1911/18/2024 CBC W Auto Diffe renti al panel - Blood MCH [entitic mass] 30.7 pg low: 26pghi gh: 34pg Not Available Not Available 11/18/2024 10:05:15 11/19/19 25 11/18/2024 CBC W Auto Diffe renti al panel - Blood MCHC [entitic mass/volume] in red blood cells 33.4 text: 31.0 - 37.0 g/dL Not Available Not Available 11/18/2024 10:05:15 11/19/19 25 11/18/2024 CBC W Auto Diffe renti al panel - Blood RDW 12.8 % low: 11.6%h igh: 14.8% Not Available Not Available 11/18/2024 10:05:15 11/19/19 25 11/18/2024 CBC W Auto Diffe renti al panel - Blood platelets [#/volume] in blood 208 text: 130 - 400 x10'3/ uL Not Available Not Available 11/18/2024 10:05:15 11/19/19 25 11/18/2024 CBC W Auto Diffe renti al panel - Blood platelet [entitic mean volume] in blood 9.7 text: 7.0 - 12.0 fL Not Available Not Available 11/18/2024 10:05:15 11/19/1911/18/2024 CBC W Auto Diffe renti al panel - Blood service comment AUTOMA DEB RBC MORPHO LOGY AND PLATEL ET EVALUA TION NORMAL Not Available Not Available 10:05:15 11/19/19 25 11/18/2024 CBC W Auto Diffe renti al panel - Blood neutrophils/ leukocytes in blood by automated count 73.1 % low: 40%hig h: 74% Not Available Not Available 11/18/2024 10:05:15 11/19/19 25 11/18/2024 CBC W Auto Diffe renti al panel - Blood lymphocytes/ leukocytes in blood by automated count 14.9 % low: 14%hig h: 46% Not Available Not Available 11/18/2024 10:05:15 11/19/19 25 11/18/2024 CBC W Auto Diffe renti al panel - Blood monocytes/le ukocytes in blood by automated count 9 % low: 4%high : 13% Not Available Not Available 11/18/2024 10:05:15 11/19/19 25 11/18/2024 CBC W Auto Diffe renti al panel - Blood eosinophils/ leukocytes in blood by automated count 1.6 % low: 0%high : 7% Not Available Not Available 11/18/2024 10:05:15 11/19/1911/18/2024 CBC W Auto Diffe renti al panel - Blood basophils/le ukocytes in blood by automated count 0.8 % low: 0%high : 3% Not Available Not Available 11/18/2024 10:05:15 11/19/19 25 11/18/2024 CBC W Auto Diffe renti al panel - Blood immature granulocytes /leukocytes in blood by automated count 0.6 % low: 0%high : 0.43% high Not Available Not Available 11/18/2024 10:05:15 11/19/1911/18/2024 CBC W Auto Diffe renti al panel - Blood nucleated erythrocytes /leukocytes [ratio] in blood 0 % Not Available Not Available 10/2024 10:05:15 11/19/19 25 11/18/2024 CBC W Auto Diffe renti al panel - Blood neutrophils [#/volume] in blood 4.65 text: 1.69 - 7.81 x10'3/ uL Not Available Not Available 11/18/2024 10:05:15 11/19/1911/18/2024 CBC W Auto Diffe renti al panel - Blood lymphocytes [#/volume] in blood 0.95 text: 0.21 - 5.42 x10'3/ uL Not Available Not Available 11/18/2024 10:05:15 11/19/1911/18/2024 CBC W Auto Diffe renti al panel - Blood monocytes [#/volume] in blood 0.57 text: 0.04 - 1.37 x10'3/ uL Not Available Not Available 11/18/2024 10:05:15 11/19/1911/18/2024 CBC W Auto Diffe renti al panel - Blood eosinophils [#/volume] in blood 0.1 text: 0.00 - 0.68 x10'3/ uL Not Available Not Available 11/18/2024 10:05:15 11/19/1911/18/2024 CBC W Auto Diffe renti al panel - Blood basophils [#/volume] in blood 0.05 text: 0.00 - 0.08 x10'3/ uL Not Available Not Available 11/18/2024 10:05:15 11/19/1911/18/2024 CBC W Auto Diffe renti al panel - Blood immature granulocytes [#/volume] in blood 0.04 text: 0.00 - 0.06 x10'3/ uL Not Available Not Available 11/18/2024 10:05:15 11/19/19 25 11/18/2024 CBC W Auto Diffe renti al panel - Blood nucleated erythrocytes [#/volume] in blood 0 text: 0.00 - 0.01 x10'3/ uL Not Available Not Available 11/18/2024 10:05:15 11/19/1911/18/2024 CBC W Auto Diffe renti al panel - Blood interpretati on and review of laboratory results Abnorm al Not Available Not Available 10:05:15 Result Notes None recorded. Problems Name Problem SNOMED Code Status Onset Date Resolution Date Notes Provider Name and Address Organization Details Recorded Time Pain of right knee joint 8450888591430 00 Active 2023 Jarod Montgomery MA null, [place] - [facility] 4 10:49:16 Essential hypertensio n 51934715 Active 2023 Jarod Montgomery [place] [facility] 4 10:49:31 Body mass index 20-24 - normal 221817985 Active 2023 Juan Rocha [place], [place] [facility] 09:53:14 Problem Notes None recorded. Procedures Surgical History Date Name Laterality Status Provider Name and Address Organization Details Recorded Time Chole[place] completed RACHEL [place] - [facility] 09/08/2023 15:09:20 Dilation and Curettage [place] [facility] 09/08/2023 15:09:45 Carpal tunnel surgery [place] [facility] 09/08/2023 15:09:55 Imaging Results None recorded. Procedure Notes None recorded. Medical Equipment None Reported. Allergies Allergen ID Allergen Name Allergen Category Reaction Reaction Severity Criticality Documentation Date Start Date Code Code System Note Provider Name and Address Organization Details Recorded Time 034789 codeine medicatio n other Not available Not available 09/08/2023 2670 RxNorm upset stoma ch RACHEL V[place], [place] - [facility] 4 15:05:11 Medications Name Sig Start Date Stop Date Status Note LastModified by Organization Details LastModified Time meclizine 25 mg tablet TAKE 1 TABLET 3 TIMES A DAY BY ORAL ROUTE NEEDED. 09/07 completed Not Available Not Available Not Available cephalexin 500 mg capsule TAKE 1 CAPSULE BY MOUTH TWICE A DAY FOR 10 DAYS 09/07 completed Not Available Not Available Not Available losartan 25 mg tablet TAKE 1 TABLET BY MOUTH EVERY DAY 09/07 completed Not Available Not Available Not Available pramipexol e 0.125 mg tablet TAKE 1 TABLET BY MOUTH THREE TIMES A DAY 02/18 completed not taking Not Available Not Available Not Available mirtazapin e 15 mg tablet Take 1 tablet every day by oral route at bedtime. 2024 active Not Available Not Available Not Avai lable albuterol sulfate HFA 90 mcg/actuat ion aerosol inhaler PLEASE SEE ATTACHED FOR DETAILED DIRECTIO NS active Not Available Not Available No t Available carbidopa 25 mg-levodop a 100 mg tablet TAKE 2 TABLETS BY MOUTH 3 TIMES A DAY. active Not Available Not Available No t Available diazepam 5 mg tablet TAKE 1/2 OF A TABLET BY MOUTH TWICE A DAY 09/07 completed Not Available Not Available Not Available Adult Low Dose Aspirin 81 mg tablet,del ayed release Take 1 tablet every day by oral route. active Not Available Not Available No t Available nitrofuran toin monohydrat e/macrocry stals 100 mg capsule TAKE 1 CAPSULE BY MOUTH TWICE A DAY FOR 5 DAYS 02/18 completed Not Available Not Available Not Available Vitals Date Recorded Body height Body mass index (BMI) Body weight Heart rate Oxygen saturation Oxygen saturation in Arterial blood by Pulse oximetry Systolic And Diastolic Provider Name and Address Organization Details Last Updated DateTime 4 162.56 cm 25.6 kg/m2 72374.2 6 g 101 /min 98 % 98 % 124/80 mm[Hg] RACHEL Vega [place] - [facility] 4 15:08:39 Date Recorded Body height Body mass index (BMI) Body weight Heart rate Oxygen saturation Oxygen saturation in Arterial blood by Pulse oximetry Systolic And Diastolic Provider Name and Address Organization Details Last Updated DateTime 5 162.56 cm 23.7 kg/m2 90600.4 7 g 72 /min 99 % 99 % 126/64 mm[Hg] Adelia Rehman MA [facility] 5 12:14:02 Date Recorded Body height Body mass index (BMI) Body weight Heart rate Oxygen saturation Oxygen saturation in Arterial blood by Pulse oximetry Systolic And Diastolic Provider Name and Address Organization Details Last Updated DateTime 4 162.56 cm 24.5 kg/m2 83231.7 1 g 84 /min 95 % 95 % 126/84 mm[Hg] RACHEL Vega [facility] 4 15:40:11 Date Recorded Body height Body mass index (BMI) Body weight Respiratory rate Heart rate Oxygen saturation Oxygen saturation in Arterial blood by Pulse oximetry Systolic And Diastolic Provider Name and Address Organization Details Last Updated DateTime 4 162.56 cm 24 kg/m2 57375.2 2 g 18 /min 82 /min 98 % 98 % 138/88 mm[Hg] Juan Rocha MA [facility] 4 09:54:49 Social History Question Answer Notes LastModified by Organizat ion Details LastModified Time Tobacco Smoking Status Former Smoker quit 50 yrs ago RACHEL Vega [facility] 09/08/2023 15:06:28 Do You Have An Advance Directive? Yes Information not available 02/19/2024 Are You Blind Or Do You Have Difficulty Seeing? No Glasses Information not available 02/19/2024 What Is Your Level Of Caffeine Consumption? Moderate Coffee Information not available 02/19/2024 In The 14 Days Before Symptom Onset, Have You Had Close Contact With A Laboratory-confir med COVID-19 While That Case Was Ill? No Information not available 02/19/2024 In The 14 Days Before Symptom Onset, Have You Had Close Contact With A Person Who Is Under Investigation For COVID-19 While That Person Was Ill? No Information not available 02/19/2024 Have You Been To An Area Known To Be High Risk For COVID-19? No Information not available 02/19/2024 Are You Deaf Or Do You Have Serious Difficulty Hearing? No Information not available 02/19/2024 What Type Of Diet Are You Following? REGULAR Information not available 02/19/2024 Are There Any Guns Present In Your Home? No Information not available 02/19/2024 What Was The Date Of Your Most Recent Tobacco Screening? 10/12/2024 [email or web address] Information not available 10/12/2024 What Is Your Current Pack Years? 30ormorepack years Information not available 02/19/2024 What Is Your Relationship Status? Information not available 02/19/2024 Do You Use Your Seat Belt Or Car Seat Routinely? Yes Information not available 02/19/2024 Do You Have Smoke And Carbon Monoxide Detectors In Your Home? Yes Information not available 02/19/2024 How Much Tobacco Do You Smoke? No Information not available 02/19/2024 Do You Use Sunscreen Routinely? No Information not available 02/19/2024 Has Tobacco Cessation Counseling Been Provided? No Information not available 02/19/2024 Sex: Female Functional Status Question Answer Note LastModified by Organizat ion Details LastModified Time Do you use any illicit or recreational drugs? No Information not available 02/19/2024 Do you or have you ever used any other forms of tobacco or nicotine? No Information not available 02/19/2024 What is your level of alcohol consumption? None Information not available 02/19/2024 Are you currently employed? No Information not available 02/19/2024 Are you able to care for yourself? Yes Information not available 02/19/2024 Mental Status Question Answer Note LastModified by Organization D etails LastModified Time Do you feel stressed (tense, restless, nervous, or anxious, or unable to sleep at night)? [id number] Information not available 02/19/2024 Family History Relationship Description Onset Age of this Age Resolved Age Notes LastModified by Organization Details LastModified Time Father Diabetes mellitus [email or web address] Not available 08/15 15:12:15 Mother Alzheimer's disease [email or web address] Not available 08/15 15:12:21 Medical History Condition Response Stroke Y Asthma Y Allergies Y Gynecological History Statement/Question Response Menses Monthly N Current Control Method None Obstetrics History GPAL:G 0 P 0 0 0 0 Immunizations Vaccine Type Date Status Note Provider Nam e and Address Organization Details Recorded Time COVID-19, mRNA, LNP-S, PF, 30 mcg/0.3 mL dose 02/10/2021 completed Angella Santos R[place], [place] [facility] 12/01/2023 15:31:56 COVID-19, mRNA, LNP-S, PF, 30 mcg/0.3 mL dose 03/03/2021 completed Angella Santos R[place] [facility] 12/01/2023 15:31:56 Past Encounters Encounter ID Performer Location Encounter Start Date Encounter Closed Date Diagnosis/Indication Diagnosis SNOMED-CT Code Diagnosis ICD10 Code Diagnosis Note [id number] Sreekanth Cartagena MD [facility] [employer] [facility] [employer] [address] [place] [id number] 09/08/2023 14:56:10 09/08/2023 15:36:15 Pain of right knee joint 6653211010 90138 M25.561 History of cerebrovascular accident 151357712 Z86.73 Essential hypertension 21059886 I10 [id number] Sreekanth Cartagena MD [facility] [facility] [employer] [address] [place] [id number] 1 12/01/2023 14:56:31 12/01/2023 16:09:23 Essential hypertension 41570130 I10 Paresthesi a of lower extremity 739014460 R20.2 History of cerebrovascular accident 314106482 Z86.73 [id number] Sreekanth Cartagena MD [facility] [employer] [facility] [employer] [address] [place] [address] 02/19/2024 09:42:12 02/19/2024 10:48:51 Muscle weakness 72520632 M62.81 [id number] Sreekanth Cartagena MD [facility] [address] [place] [id number] 10/12/2024 12:02:47 10/12/2024 12:53:04 Body mass index 20-24 - normal 475538481 Z68.23 Overweight 683493679 E66 .3 Dysphagia 44881751 R13.1 9 Essential hypertension 17469212 I10 Asthenia 66218993 R53.1 Health Concerns Section Related Observation LastModified by Organization Detai ls LastModified Time None Recorded Concern Status LastModified by Organization Details LastModified Time None Recorded Advance Directives Directive Y: Payers Insurance Date Sequence Insurance Name Policy Number Policy Parmar Covered Member ID Parmar Member ID Guarantor Name 10/13/2024 1 [place] 106 Merly Turner Hernández [id number] Merly Hernández 02/11/2024 2 UNSPECIFIED REMIT PAYOR Merly Hernández 10/13/2024 [place] FQHC Merly Turner Hernández [id number] Merly Hernández 10/13/2024 1 [place] Merly Turner Hernández [id number] Merly Hernández 10/13/2024 2 [place] [id number] Merlyvania Hernández [id number] Merly Hernández 09/08/2023 1 *SELF PAY* Karen Hernández Notes Date Note Type Note Provider Name and Address Organization Details Recorded Time 09/08/2023 text/html She has been struggling with some right knee pain for a while. She is still struggling with what she has been told her long COVID symptoms as well and she has seen neuro Sreekanth Cartagena MD Attn: [address]ing[address] [facility], [place], [address], [facility] 09/08/2023 21:52:34 12/01/2023 text/html Plethora of neurological complaints still she is seen a couple neurologist started on carbidopa levodopa for what was diagnosed as Parkinson's that made her worse than pramipexole did not help Sreekanth Cartagena MD Attn: [address]ing[address] [facility], [place], [address], [place] [facility] 12/01/2023 21:32:58 02/19/2024 text/html weakness fatigue headache going to see a new neurologist later this month states getting very hard to get out of the house Sreekanth Cartagena MD Attn: Accounting[address], [place], [address], [facility] 02/19/2024 22:55:51 10/12/2024 text/html Merly comes in because she just feels weak trouble swallowing at times she has been to 4 neurologist now she has been told that she has had Parkinson's disease she has been seen by I believe somewhat in [facility] she has been to the [facility] at [facility] I do not have that note and she has been a general neurology at [facility] she has been diagnosed twice with Parkinson's started on Sinemet of which she discontinues because she says it does not work she is in attendance with her today she is tearful and basically says no but he is trying to help her. She has been online and she is convinced that she has amyotrophic lateral sclerosis Sreekanth Cartagena MD Attn: [employer]ing,[address] , [place], [address], [facility] 10/12/2024 13:36:05 OBGyn Episode No OBEpisode recorded.
--- OUTSIDE RECORDS SUMMARY | 2024-12-31 10:48 | XMS_ITS | Data Portability ---
Author Organization [employer], Medical Address [address] [place] [address] Care Team Providers Care Oil Plant Operator Name Role Phone KERRI OROZCO Neurologist Assessment Encounter Date Assessment Date Assessment LastModified by Organization Details LastModified Time 05/14/2024 05/14/2024 78 y/o F reports for FNA Hx of Labs show How would you sum up your goal/why do you want to see a dynamometer tuner? Caffeine/Alc Smoking/Drug Use Current Supps Hydration Exercise Workout Recovery Nutrition Sleep Diet Recall Allergies/Aver sions Non-negotiable s Stress Relationship to Food and Body Tracking? CGM? Gut Health/Stool Cassandra no showed this appt Not available 05/14/2024 13:59:10 10/19/2024 10/19/2024 Cassandra is a 79 yr old woman with Parkinson s disease complicated by fatigue, voice and balance issues, sleep apnea and a history of stroke, asthma, arthritis, gall stones, diverticulitis , and early menopause at 39yo status post carpal tunnel surgery, cataract surgery, cholecystectom y, and dental surgery. Pos fhx of mom () cancer, neuro dz; dad heart dz; bro asthma/allergi es; sis () cancer Not available 10/18/2024 14:02:36 10/26/2024 10/26/2024 to set up visit with ingrid to discuss care planning and possible plan for evaluation and/or referral Not available 10/26/2024 19:50:13 Plan of Treatment Reminders Order Date Submit Date Provider Last Modified By Organization Details Last Modified Time Details Appointments None recorded. Lab CMP, serum or plasma 2023 024 [facility], [address] [place] [address], [address], 11:17:51 CBC w/ auto diff 2023 [facility], [address] [place] [address], [address], 4 11:17:53 CRP, high sensitivity , serum or plasma 2023 [facility], [address] [place] [address], [address], 4 11:17:50 erythrocyte sedimentati on rate by westergren method 2023 [facility], [address] [place] [address], [address], 11:17:52 vitamin B12 + folate, serum or blood 2023 [facility], [address] [place] [address], [address], 4 11:17:54 TSH + free T4, serum 2023 [facility], [address] [place] [address], [address], 11:17:50 iron + TIBC + ferritin, serum 2023 [facility], [address] [place] [address], [address], 4 11:17:49 CK (creatine kinase), total, serum 2023 [facility], [address] [place] [address], [address], 4 11:17:52 HbA1c (hemoglobin A1c), blood 2023 [facility], [address] [place], [address], 4 11:17:51 MIREILLE (antinuclea r antibodies) screen, serum 2023 024 [facility], [address] [place], [address], 4 11:17:54 Referral None recorded. Procedures None recorded. Surgeries None recorded. Imaging None recorded. Medication Orders None recorded. Patient Targets Encounter Date Encounter Id Patient Goals Patient Target Last Modified By Organization Details Last Modified Time 04/13/2024 [id number] IMPROVE QUALITY OF LIFE WITH PARKINSONISM (mood, balance, voice, fatigue) --CONTINUE daily movement --CONSIDER with Headspace or Calm apps to work on meditation and visualization of body movement --WORK with René Benítez around nutrition and Parkinsonism --START ResearchedNutritionals ATP 360 3 capsules daily (2 month trial for fatigue, sleep, mental functioning) --CONSIDER trial of MCT Oil for neural protection and improved function (starting at 5ml 2x daily of a high quality product that is mostly C8 oils like CouchCommercetpRoundbox Brain Octane or most trustworthy-appearing source on MaxxAthlete) Not available 12:07:20 Patient Instructions Encounter Date Encounter Id Patient Instructions Last Modified By Organization Details Last Modified Time 04/13/2024 [id number] PATIENT INSTRUCT IONS START following medications/supplements: SUPPL: --START ResearchedNutritionals ATP 360 3 capsules daily LIFESTYLE: Having healthy sleep, diet, and exercise can help you improve your over all health and can help treat or even resolve your medical issues. Sleep: aim for 8 hours of sleep, go to bed and wake up at the same time every day if possible, limit screen time 1 hour prior to bedtime FOLLOW UP APPOINTMENTS: Functional Nutritional Assessment with René Benítez by video to discuss MIND diet and/or ketogenic leaning options to facilitate nutritional support for Parkinson's --[facility] labs for labs (non-fasting okay) FOLLOW UP WITH DR. RICO: --EXTENDED in 3 months to assess response to movement therapy and supplement EXPECT care coordination call from Pascale, your patient liaison within one week. NOTIFY clinic of any changes to medications and/or supplements as listed above. (If you medication or supplement lists are too large to remember, please bring products and/or a list to your next visits) Send outside pdfs/labs to [email or web address] We now have one single Biazzi Nitrator Operator Line ([phone]) for texting and calling, which will make things much easier for patients moving forward. Texting is available Friday through Friday from 8 AM to 5 PM, and calling is available 06/01 for urgent needs. Not available 04/13/2024 12:56:03 Reason for Referral None Reported. Results Created Date Observation Date Name Description Value Unit Range Abnormal Flag Note LastModifiedBy Organization Detail LastModifiedTime 05/18/20 24 2024 IRON, TIBC AND BIJAN TIN PANEL iron, total 98 mcg/d L 45-160 normal Not Available [facility] [address] [place], [address], 2024 11:17:49 05/18/20 24 2024 IRON, TIBC AND BIJAN TIN PANEL iron binding capacity 323 mcg/d L_(ca lc) 250-45 0 normal Not Available [address], [address], 2024 11:17:49 05/18/20 24 2024 IRON, TIBC AND BIJAN TIN PANEL % saturation 30 %_(ca lc) 16-45 normal Not Available [facility] [address], [address], 2024 11:17:49 05/18/20 24 2024 IRON, TIBC AND BIJAN TIN PANEL ferritin 152 NG/mL 16-288 normal Not Available [employer] [address], [address], 2024 11:17:49 05/18/20 24 2024 TSH+F REE T4 TSH 1.84 mIU/L 0.40-4 .50 normal Not Available [employer] [address], [address], 2024 11:17:50 05/18/20 24 2024 TSH+F REE T4 T4, free 1.1 NG/dL 0.8-1. 8 normal Not Available [facility] [address], [place], [address], 2024 11:17:50 05/18/20 24 2024 HS CRP hs CRP 0.7 mg/L normal Refer ence Range Optim al <1.0 Darcy enriquez PS et al. Endoc r Pract .2017 ;23(S uppl 2):1- 87. For ages >17 Years : hs-CR P mg/L Risk Accor ding to AHA/C DC Guide lines <1.0 Lower relat jaren cardi ovasc ular risk. 1.0-3 .0 [place] ge relat jaren cardi ovasc ular risk. 3.1-1 0.0 Highe r relat jaren cardi ovasc ular risk. Consi emile retes ting in 1 to 2 weeks to exclu de a benig n trans ient eleva tion in the basel ine CRP value secon evens to infec tion or infla mmati on. >10.0 Persi stent eleva tion, upon retes ting, may be assoc iated with infec tion and infla mmati on. Pears on TA, Mensa h [place], Sari ventura RW, et al. [place] rs of infla mmati on and cardi ovasc ular disea se: appli catio n to clini juan pablo and publi c healt h pract ice: A state ment for healt hcare profe magdyon als from the [facility] rs for Disea se Contr ol and Preve ntion and the Ameri can Heart Assoc iatio n. Circu latio n 2003; 107(3 ): 499-5 11. Not Available [facility] [address] [place], [address], 2024 11:17:50 05/18/20 24 2024 COMPR EHENS JAREN METAB OLIC PANEL glucose 97 mg/dL 65-139 normal Non-f astin g refer ence inter fay Not Available [address], [address], 2024 11:17:51 05/18/20 24 2024 COMPR EHENS JAREN METAB OLIC PANEL urea nitrogen (BUN) 13 mg/dL 7-25 normal Not Available [address], [address], 2024 11:17:51 05/18/20 24 2024 COMPR EHENS JAREN METAB OLIC PANEL creatinine 0.65 mg/dL 0.60-0 .95 normal Not Available [address], [address], 2024 11:17:51 05/18/20 24 2024 COMPR EHENS JAREN METAB OLIC PANEL eGFR 89 mL/mi n/1.7 3m2 > or = 60 normal Not Available [address], [address], 2024 11:17:51 05/18/20 24 2024 COMPR EHENS JAREN METAB OLIC PANEL BUN/creatini ne ratio SEE NOTE: (calc ) 6-22 Not Repor zachariah: BUN and Creat inine are withi n refer ence range . Not Available [address], [address], 2024 11:17:51 05/18/20 24 2024 COMPR EHENS JAREN METAB OLIC PANEL sodium 138 mmol/ L 135-14 6 normal Not Available [address], [address], 2024 11:17:51 05/18/20 24 2024 COMPR EHENS JAREN METAB OLIC PANEL potassium 3.9 mmol/ L 3.5-5. 3 normal Not Available [address], [address], 2024 11:17:51 05/18/20 24 2024 COMPR EHENS JAREN METAB OLIC PANEL chloride 103 mmol/ L 98-110 normal Not Available [address], [address], 2024 11:17:51 05/18/20 24 2024 COMPR EHENS JAREN METAB OLIC PANEL carbon dioxide 28 mmol/ L 20-32 normal Not Available [address], [address], 2024 11:17:51 05/18/20 24 2024 COMPR EHENS JAREN METAB OLIC PANEL calcium 9.7 mg/dL 8.6-10 .4 normal Not Available [address], [address], 2024 11:17:51 05/18/20 24 2024 COMPR EHENS JAREN METAB OLIC PANEL protein, total 7.1 g/dL 6.1-8. 1 normal Not Available [address], [address], 2024 11:17:51 05/18/20 24 2024 COMPR EHENS JAREN METAB OLIC PANEL albumin 4.2 g/dL 3.6-5. 1 normal Not Available [address], [address], 2024 11:17:51 05/18/20 24 2024 COMPR EHENS JAREN METAB OLIC PANEL globulin 2.9 g/dL_ (calc ) 1.9-3. 7 normal Not Available [address], [address], 2024 11:17:51 05/18/20 24 2024 COMPR EHENS JAREN METAB OLIC PANEL albumin/glob ulin ratio 1.4 (calc ) 1.0-2. 5 normal Not Available [address], [address], 2024 11:17:51 05/18/20 24 2024 COMPR EHENS JAREN METAB OLIC PANEL bilirubin, total 0.6 mg/dL 0.2-1. 2 normal Not Available [address], [address], 2024 11:17:51 05/18/20 24 2024 COMPR EHENS JAREN METAB OLIC PANEL alkaline phosphatase 74 U/L 37-153 normal Not Available [address], [address], 2024 11:17:51 05/18/20 24 2024 COMPR EHENS JAREN METAB OLIC PANEL AST 10 U/L 10-35 normal Not Available [address], [address], 2024 11:17:51 05/18/20 24 2024 COMPR EHENS JAREN METAB OLIC PANEL ALT 3 U/L 6-29 low Not Available [address], [address], 2024 11:17:51 05/18/20 24 2024 HEMOG LOBIN A1C hemoglobin A1C 5.2 %_of_ total _HGB <5.7 normal For the purpo se of domingo parker for the prese nce of diabe nadege: <5.7% Consi stent with the absen ce of diabe nadege 5.7-6 .4% Consi stent with incre ased risk for diabe nadege (pred iabet es) > or =6.5% Consi stent with diabe nadege This assay resul t is consi stent with a decre ased risk of diabe nadege. Curre ntly, no conse nsus exist nichole marcial use of hemog lobin A1c for diagn osis of diabe nadege in child angela. Accor ding to Ameri can Diabe nadege Assoc iatio n (ADA) guide lines , hemog lobin A1c <7.0% repre sents optim al contr ol in non-p regna nt diabe tic patie nts. Diffe rent metri cs may apply to speci fic patie nt popul ation s. Stand ards of Medic al Care in Diabe nadege(A DA). Not Available [address], [address], 2024 11:17:51 05/18/20 24 2024 CREAT INE KINAS E, TOTAL creatine kinase, total 40 U/L 29-143 normal Not Available [address], [address], 2024 11:17:52 05/18/20 24 2024 SED RATE BY MODIF IED MAXX GOMESREN sed rate by modified westkalliren 19 mm/h < or = 30 normal Not Available [address] [place], [address], 2024 11:17:52 05/18/20 24 2024 CBC (INCL UDES DIFF/ PLT) white blood cell count 9.2 thous and/u L 3.8-10 .8 normal Not Available [facility] [address], [address], 2024 11:17:53 05/18/20 24 2024 CBC (INCL UDES DIFF/ PLT) red blood cell count 5.20 flako on/uL 3.80-5 .10 high Not Available [facility] [address] [place], [address], 2024 11:17:53 05/18/20 24 2024 CBC (INCL UDES DIFF/ PLT) hemoglobin 16.2 g/dL 11.7-1 5.5 high Not Available [facility] [address], [address], 2024 11:17:53 05/18/20 24 2024 CBC (INCL UDES DIFF/ PLT) hematocrit 48.3 % 35.0-4 5.0 high Not Available [facility] [address], [address], 2024 11:17:53 05/18/20 24 2024 CBC (INCL UDES DIFF/ PLT) MCV 92.9 fL 80.0-1 00.0 normal Not Available [address], [address], 2024 11:17:53 05/18/20 24 2024 CBC (INCL UDES DIFF/ PLT) MCH 31.2 pg 27.0-3 3.0 normal Not Available [address], [address], 2024 11:17:53 05/18/20 24 2024 CBC (INCL UDES DIFF/ PLT) MCHC 33.5 g/dL 32.0-3 6.0 normal For adult s, a sligh t decre ase in the calcu lated MCHC value (in the range of 30 to 32 g/dL) is most likel y not clini valeri gallardoi arslan t; liudmila er, it shoul d be inter prete d with cauti on in corre latio n with other red cell isaac eters and the patie nt's clini juan pablo condi tion. Not Available [facility] [address], [address], 2024 11:17:53 05/18/20 24 2024 CBC (INCL UDES DIFF/ PLT) RDW 12.3 % 11.0-1 5.0 normal Not Available [address], [address], 2024 11:17:53 05/18/20 24 2024 CBC (INCL UDES DIFF/ PLT) platelet count 226 thous and/u L 140-40 0 normal Not Available [address], [address], 2024 11:17:53 05/18/20 24 2024 CBC (INCL UDES DIFF/ PLT) MPV 10.0 fL 7.5-12 .5 normal Not Available [address], [address], 2024 11:17:53 05/18/20 24 2024 CBC (INCL UDES DIFF/ PLT) absolute neutrophils 6504 cells /uL 1500-7 800 normal Not Available [address], [address], 2024 11:17:53 05/18/20 24 2024 CBC (INCL UDES DIFF/ PLT) absolute lymphocytes 1463 cells /uL 850-39 00 normal Not Available [address], [address], 2024 11:17:53 05/18/20 24 2024 CBC (INCL UDES DIFF/ PLT) absolute monocytes 975 cells /uL 200-95 0 high Not Available [address], [address], 2024 11:17:53 05/18/20 24 2024 CBC (INCL UDES DIFF/ PLT) absolute eosinophils 193 cells /uL 15-500 normal Not Available [address], [address], 2024 11:17:53 05/18/20 24 2024 CBC (INCL UDES DIFF/ PLT) absolute basophils 64 cells /uL 0-200 normal Not Available [address], [address], 2024 11:17:53 05/18/20 24 2024 CBC (INCL UDES DIFF/ PLT) neutrophils 70.7 % normal Not Available [address], [address], 2024 11:17:53 05/18/20 24 2024 CBC (INCL UDES DIFF/ PLT) lymphocytes 15.9 % normal Not Available [address], [address], 2024 11:17:53 05/18/20 24 2024 CBC (INCL UDES DIFF/ PLT) monocytes 10.6 % normal Not Available [address], [address], 2024 11:17:53 05/18/20 24 2024 CBC (INCL UDES DIFF/ PLT) eosinophils 2.1 % normal Not Available [address], [address], 2024 11:17:53 05/18/20 24 2024 CBC (INCL UDES DIFF/ PLT) basophils 0.7 % normal Not Available [address], [address], 2024 11:17:53 05/18/20 24 2024 VITAM IN B12/F OLATE , SERUM PANEL vitamin B12 426 pg/mL 200-11 00 normal Not Available [address], [address], 2024 11:17:53 05/18/20 24 2024 VITAM IN B12/F OLATE , SERUM PANEL folate, serum 20.5 NG/mL normal Refer ence Range Low: <3.4 Borde rline : 3.4-5 .4 Tressa l: >5.4 Not Available [facility] [address] [address], [place], [address], 2024 11:17:53 05/18/20 24 2024 MIREILLE MULTI PLEX W/REF JUAN CARLOS 11 AB CASCA DE MIREILLE screen, immunoassay NEGATI VE negati ve normal A negat jaren MIREILLE Multi plex indic ates the absen ce of detec table antib odies to compo nent trace andege consi sting of doubdiana e stran ded DNA (dsDN A), chrom atin, ribon ucleo prote in (TRUCK CLEANER) , Alvares /TRUCK CLEANER (Sm/R OCCUPATIONAL THERAPY ASST), Alvares (Sm), SS-A, SS-B, Lilian-1, centr omere B, Scl-7 0 and ribos omal P. A negat jaren resul t shoul d be inter prete d in the glo xt of the clini juan pablo and labor atory findi ngs and does not rule out autoi mmune disea se sherwin cteri zed by other autoa ntibo dy speci ficit ies such as rheum atoid arthr itis, autoi mmune hepat itis, prima ry bilia ry cirrh osis, autoi mmune thyro iditi s, Rebecca on's disea se, perni cious anemi a, autoi mmune neuro pathi es, vascu litis , janeth c disea se, and bullo us disea se. For addit ional infor caroline gore e refer to http: //miald patelQue stDia gnost ics.c om/fa q/FAQ 177 (This link is being provi ded for infor tracee seo/ educvania ortiz purpo ses only. ) Not Available [facility] [address] [place], [address], 2024 11:17:54 Result Notes None recorded. Procedures Surgical History Date Name Laterality Status Provider Name and Address Organization Details Recorded Time 5 Date of Last [facility] 17:52:29 5 Date of Last Pap Smear completed [facility] 04/30/2024 17:52:29 [facility] 17:52:50 Other [facility] 04/[facility] 17:52:50 Gall Bladder Removal [facility] 04/30/2024 17:52:50 Imaging Results None recorded. Procedure Notes None recorded. Medical Equipment None Reported. Allergies Allergen ID Allergen Name Allergen Category Reaction Reaction Severity Criticality Documentation Date Start Date Code Code System Note Provider Name and Address Organization Details Recorded Time 85009 codeine medicatio n nausea Not available Not available 04/30/2024 2670 RxNorm [facility] 17:52:05 66774 cat dander environme nt itching respirato ry distress Not available Not available Not available 04/30/2024 62613 UNK [facility] 17:52:05 74566 Canis lupus familiari s extract environme nt rash Not available Not available 04/30/2024 74717 4 RxNorm [facility] 17:52:05 67042 mold extract environme nt respirato ry distress Not available Not available 04/30/2024 63940 8 RxNorm [facility] 17:52:05 Vitals Date Recorded Body weight Body temperature Heart rate Oxygen saturation Oxygen saturation in Arterial blood by Pulse oximetry Systolic And Diastolic Provider Name and Address Organization Details Last Updated DateTime 4 68612.8 5 g 98.2 [degF] 98 /min 96 % 96 % 145/81 mm[Hg] Pascale Omer [facility] 11:07:26 Social History Question Answer Notes LastModified by Organizat ion Details LastModified Time Tobacco Smoking Status Former Smoker [place] vieira, [facility] 04/30/2024 17:52:43 Have There Been Any Changes To Your Family Or Social Situation? Yes Information not available 04/30/2024 How Many Children Do You Have? 2 Information not available 04/30/2024 Do You Have Any Pets? No Information not available 04/30/2024 Do You Have Any Siblings? No Information not available 04/30/2024 Are There Any Smokers In Your House? No Information not available 04/30/2024 How Much Tobacco Do You Smoke? 0.5 PPD Information not available 04/30/2024 How Many Years Have You Smoked Tobacco? 12 Information not available 04/30/2024 Sex: Unknown Functional Status Question Answer Note LastModified by Organization D etails LastModified Time What is your level of alcohol consumption? None Information not available 04/30/2024 Mental Status None recorded. Family History Relationship Description Onset Age of this Age Resolved Age Notes LastModified by Organization Details LastModified Time Mother Disorder of nervous system Not available 04/16 17:52:13 Mother Family history of malignant neoplasm Not available 04/16 17:52:13 Brother Asthma Not availab le 04/30/2024 17:52:13 Brother Allergic rhinitis Not available 04/16 17:52:13 Sister Family history of malignant neoplasm Not available 04/16 17:52:13 Father Heart disease Not available 04/16 17:52:13 Medical History Condition Response Arthritis Y Parkinson's Disease Y Sleep Apnea Y Gall stones Y Stroke Y Asthma Y Gynecological History Statement/Question Response If Post Menopausal, Age at Menopause 39 Y Date of Last Mammogram 03/25/1985 Breast Tenderness, water retention, irri tability with 2nd half of cycle N Date of Last Pap Smear 03/25/1985 Age at Menarche 11 control pills N Hormone Replacement Therapy N Obstetrics History GPAL:G 0 P 0 0 0 0 Past Encounters Encounter ID Performer Location Encounter Start Date Encounter Closed Date Diagnosis/Indication Diagnosis SNOMED-CT Code Diagnosis ICD10 Code Diagnosis Note [id number] SHEREE RICO MD [place] [id number] 04/05/2024 12:14:52 04/30/2024 17:53:11 [id number] SHEREE RICO MD [address] 4 04/13/2024 10:45:29 04/14/2024 12:47:34 Parkinson's disease 24977631 G20.A1 --CONTINUE carbi-levo -dopa progressio n as instructed --ADD RN ATP 360 for mitochondr ial health--CO NT physical activity about house--ADD meditation /visualiza tion around motor movements including visualizin g fast mvts like wisking--R EFER to rené benítez to investigat e possibilit y of chadd food plan vs MIND diet vs other options and discuss further cheat of c8 mct oils to tolerance- -OBTAIN wellue oxygen ring (vs oura) for saturation monitoring [id number] [place] [id number] 05/14/2024 13:29:41 05/14/2024 21:05:08 [id number] SHEREE RICO MD [place] [id number] 10/19/2024 08:48:44 11/15/2024 14:47:16 Parkinson's disease 38825350 G20.A1 --UNCERTAI N of treatment with ho prior carbi-levo -dopa progressio n instructed --PRIOR RECS: RN ATP 360 for mitochondr ial health, CONT physical activity about house, ADD meditation /visualiza tion around motor movements including visualizin g fast mvts like wisking, REFER to rené benítez to investigat e possibilit y of chadd food plan vs MIND diet vs other options and discuss further cheat of c8 mct oils to tolerance, OBTAIN wellue oxygen ring (vs oura) for saturation monitoring --plan for visit with ingrid and/or dr. garcia for further guidance on moca and guidance of care coordinati on [id number] SHEREE RICO MD [place] [id number] [place] [address] 10/26/2024 14:51:50 10/27/2024 10:55:57 Health Concerns Section Related Observation LastModified by Organization Detai ls LastModified Time None Recorded Concern Status LastModified by Organization Details LastModified Time None Recorded Advance Directives Directive None Recorded Payers Insurance Date Sequence Insurance Name Policy Number Policy Parmar Covered Member ID Parmar Member ID Guarantor Name 11/24/2024 2 [employer] (MEDICARE REPLACEMENT/A DVANTAGE - PPO) [id number] Cassandra Edgar [id number] Cassandra Edgar 04/13/2024 1 *SELF PAY* Li simón Hernández 11/20/2024 1 [place]: [place] Cassandra Edgar [id number] Cassandra Edgar Notes Date Note Type Note Provider Name and Address Organization Details Recorded Time 04/13/2024 text/html Cassandra is a 78 yr old woman with Parkinson s disease complicated by fatigue, voice and balance issues, sleep apnea and a history of stroke, asthma, arthritis, gall stones, diverticulitis, and early menopause at 39yo status post carpal tunnel surgery, cataract surgery, cholecystectomy, and dental surgery. Pos fhx of mom () cancer, neuro dz; dad heart dz; bro asthma/allergies; sis () cancer living in [facility] with dtr at this time (transiently , may-) since mar 01 goals are around movement, fatigue, voicebm are qday to qoday with rare q3d and long snakes hard to get out at times but not hard contentfrequent liquids of all sortsfrequent mvt about house including use of walker since . pos finger cramping with more physical activity mostly during day and not noc cramps; prev lived in 2 story with laundry also in basement. currently up and about to let the dog out and be active around house including daily hep between sitting for tv/cooking shows. prior PT with pushing and lead to inc fatigue withOUT obvious inc in capacity removed from PT. previously gardening/cooking/oil paintingnutrition: craves pizza, cheeseburgers but mostly vegan/vegetarian with dtr. 31# wt dec with lower cho and stable x1-2 months active complaints = gum pain with partial dentures and less cleaning since living with dtr, internal tremors eyellids really heavy dizziness that's not vertigo with right tinnitus, small handwriting, mask like facies meds: basa, goncn-cffi-dybi with 1/2 -> 1 -> 1.5 -> 2 tablets 3x/d (inc q2wk) with report of feeling great with initial accidental dose of 2 tablets till clarified, zyrtec qpm, famotidine prnsuppl: mvi when remembered mother at 93 with sdat timeline:nl self before 2020 stroke/tia x2 with some balance [id number] covid --> cassandra ([facility] txd with low hist diet done partially and no fu due to health issue)'23 sig dec in fx seen by rheum with low dose pred and transient improvement only to not be better on steroidneuro: '23 pd or parkinsonism jose david john and 03/05/24 start of [id number] and rec coffee/caffeine. no change with [id number] walker prior txs: [facility] therapy for vestibular rehab; ho colestipol s/p ccx '00 but not current; '05 vit d 50k qday x1wk; s/p r carpal tunnel surgery. cpap x1yr for sleep apnea with no changes in fatigue (no daytime sleepiness every but heavy eyelids improved with cpap) STRESS: 5 and unhealthy due to illness. Release with screamNUTRITION: good post bloating and worse post high cho/friedMVT: neverSLEEP: 6/noc. Trouble initiating sleep, restless. Not rested in am HEALTHSPAN/PREVENTATI VETob 1/2ppd x12 ; Etoh never ; phq / ree SHEREE RICO MD [address], [place], [address], [place] [facility] [employer] 04/13/2024 12:56:07 10/19/2024 text/html Cassandra is a 79 yr old woman with Parkinson s disease complicated by fatigue, voice and balance issues, sleep apnea and a history of stroke, asthma, arthritis, gall stones, diverticulitis, and early menopause at 39yo status post carpal tunnel surgery, cataract surgery, cholecystectomy, and dental surgery. Pos fhx of mom () cancer, neuro dz; dad heart dz; bro asthma/allergies; sis () cancer MSQ : 46 (11 head > 8 jt/muscle > 6 digestive) cancelled visitMSQ Initial : 40 (12 jt/muscle > 7 mind > 4 dizzy/ringing ears/st) 04/13/24 SHYLA RECS:--START ATP 360 3 capsules daily--fna--quest labs & fu response mvt therapy and supplement INTERIM LABS:: ast/alt 03/18; hscrp 0.7 esr 19. eos 2.1. mireille neg; glc 97. a1c 5.2; gfr 89 tsh/ft4 1.84/1.1. ferritin 152. cpk 40. hgb 16.2. nl b12/folate INTERIM HISTORY:05/14 rené -- late cancel desire for help with care coordination and neuro care due to inteirm limited ambulation 2/2 fall and er visits x2 due to weakness. currently at home, on farm in [facility] with isolation despite living with who is 84yo. plan to be brought to [facility] house in [facility] in november when their son picks up father and brings him to his house. cassandra is tearful in coversation and recognizing decreasing abilities. prior neurologist, dr. mckeon hang no answers per patient. with canceled emg in november talk is weak, muscles are weak and cassandra feels hollow. no current voice therapy or physical therapy. no car at home and need to rent car to visit. additional spoke with dtr who confirms ongoing issues and probable need for placement with concerns for memory and random online purchasing. PAST HISTORY:living in [facility] with dtr at this time (transiently , may-) since mar 01 goals are around movement, fatigue, voicebm are qday to qoday with rare q3d and long snakes hard to get out at times but not hard contentfrequent liquids of all sortsfrequent mvt about house including use of walker since . pos finger cramping with more physical activity mostly during day and not noc cramps; prev lived in 2 story with laundry also in basement. currently up and about to let the dog out and be active around house including daily hep between sitting for tv/cooking shows. prior PT with pushing and lead to inc fatigue withOUT obvious inc in capacity removed from PT. previously gardening/cooking/oil paintingnutrition: craves pizza, cheeseburgers but mostly vegan/vegetarian with dtr. 31# wt dec with lower cho and stable x1-2 months active complaints = gum pain with partial dentures and less cleaning since living with dtr, internal tremors eyellids really heavy dizziness that's not vertigo with right tinnitus, small handwriting, mask like facies meds: basa, [id number] with 1/2 -> 1 -> 1.5 -> 2 tablets 3x/d (inc q2wk) with report of feeling great with initial accidental dose of 2 tablets till clarified, zyrtec qpm, famotidine prnsuppl: mvi when remembered mother at 93 with sdat timeline:nl self before 2020 stroke/tia x2 with some balance [id number] covid --> cassandra ([facility] txd with low hist diet done partially and no fu due to health issue)'23 sig dec in fx seen by rheum with low dose pred and transient improvement only to not be better on steroidneuro: '23 pd or parkinsonism jose bond and 03/05/24 start of grpzf-qcmo-qwuk and rec coffee/caffeine. no change with [id number] walker prior txs: [facility] therapy for vestibular rehab; ho colestipol s/p ccx '00 but not current; '05 vit d 50k qday x1wk; s/p r carpal tunnel surgery. cpap x1yr for sleep apnea with no changes in fatigue (no daytime sleepiness every but heavy eyelids improved with cpap) STRESS: 5 and unhealthy due to illness. Release with screamNUTRITION: good post bloating and worse post high cho/friedMVT: neverSLEEP: 6/noc. Trouble initiating sleep, restless. Not rested in am HEALTHSPAN/PREVENTATI VETob 1/2ppd x12 ; Etoh never ; phq / ree SHEREE RICO MD [address], [place], [address], [employer] 10/29/2024 13:17:18 10/26/2024 text/html dtr, [place] sired call to set up a plan to help mother. positive fall and danger to her believed if she remains in current home. dtr desies moca testing given some questionable choices, statements, and a $3k purchase on game. to get emg from neuro at [facility]. she will be brought to 11/20 [facility] and some inquiry around whether placement might need to be considered many portal msgs from [facility]. question of parkinson's with/without dementia (? lewy body) SHEREE RICO MD [address], [place], [address], [employer] 10/26/2024 19:50:16 OBGyn Episode No OBEpisode recorded.
--- OUTSIDE RECORDS SUMMARY | 2024-12-31 10:48 | XMS_ITS | Clinical Summary ---
Author Organization [facility] Address [address] [place] [address] Care Team Providers Care Ferry Hand Name Role Phone Sreekanth Cartagena MD Primary Care Provider [phone] Allergies Active Allergy Reactions Criticality Noted Date Comments Codeine Unknown,Nausea Only Low 11/02/2013 Medications aspirin EC (ASPIRIN EC) 81 MG tabletIndicatio ns:blood thinner Take 1 tablet (81 mg total) by mouth daily. Indications: blood thinner 2 Active Multiple Vitamin (MULTIVITAMIN ADULT OR)Indications: supplement Take 1 tablet by mouth daily. Indications: supplement 2 Active albuterol sulfate HFA 108 (90 Base) MCG/ACT inhaler Inhale 4 puffs into the lungs every 4 (four) hours as needed for Wheezing or Shortness of breath (cough). 18 g 5 Active Active Problems No known active problems Encounters Date Type Department Care Team Description 11/18/2024 7:11 AM CDT - 11/18/2024 9:29 AM CDT Emergency [facility] [address] [place] [address] [place] [address] David Delgado MD Medical Problem Discharge Disposition: Home or Self Care (Routine Discharge) 11/18/2024 Travel from Last 3 Months Family History Medical History Relation Comments Cancer Maternal Aunt Cancer Sister Relation Status Comments Maternal Aunt Sister Social History Tobacco Use Types Packs/Day Years Used Date Smoking Tobacco: Never Smokeless Tobacco: Never Tobacco Cessation:Counseling Given: No Alcohol Use Standard Drinks/Week Comments Not Currently 0 (1 standard drink = 0.6 oz pur e alcohol) Comments No Sex and Gender Information Value Date Recorded Sex Assigned at Female 07/23/2024 2:54 PM [employer] Legal Sex Female 7:59 AM CDT Gender Identity Not on file Sexual Orientation Not on file Last Filed Vital Signs Vital Sign Reading Time Taken Comments Blood Pressure 146/56 11/18/2024 9:20 AM CDT Pulse 92 11/18/2024 9:20 AM CDT Temperature 36.4 C (97.6 F) 11/18/2024 9:20 AM CDT Respiratory Rate 18 11/18/2024 9:20 AM CDT Oxygen Saturation 98% 11/18/2024 9:20 AM CDT Inhaled Oxygen Concentration - - Weight 59 kg (130 lb) 11/18/2024 7:15 AM CDT Height 162.6 cm (5' 4) 11/18/2024 7:15 AM CDT Body Mass Index 22.31 11/18/2024 7:15 AM CDT Plan of Treatment Health Maintenance Due Date Last Done Comments DTaP, Tdap and Td Vaccines ( 1 - Tdap) 1963 Pneumococcal Vaccine: 50+ Years (1 of 1 - PCV) 1994 Zoster Vaccines (1 of 2) 1994 Annual Medicare Wellness Visit 2009 Dexa Scan (General) 2009 RSV Immunization or 60+ Years (1 - 1-dose 75+ series) 2019 COVID-19 Vaccine (3 - 2023-2 5 season) 2024 03/03/2021, 02/10/2021 Meningococcal B Vaccine Aged Out No l onger eligible based on patient's age to complete this topic Meningococcal Vaccine Aged Out No vlad vel eligible based on patient's age to complete this topic RSV Immunizations Under 20 Months Aged Out No longer eligible b ased on patient's age to complete this topic Procedures Procedure Name Priority Date/Time Associated Diagnosis Comments URINALYSIS MICRO ONLY Routine 11/18/2024 7:58 AM CDT LACTIC ACID STAT 11/18/2024 7:58 AM CDT KETONE BODYS QUALITATIVE STAT 11/18/2024 7:58 AM CDT URINALYSIS AUTO DIP STAT 11/18/2024 7 :58 AM CDT PRO-BRAIN NATRIURETIC PEPTIDE STAT 11/18/2024 7:58 AM CDT TROPONIN, QUANT STAT 11/18/2024 7:58 AM CDT CK (CPK) STAT 11/18/2024 7:58 AM CDT COMPREHENSIVE METABOLIC PANEL STAT 11/18/2024 7:58 AM CDT CBC W/DIFF AUTOMATED STAT 11/18/2024 7:58 AM CDT XR CHEST PORTABLE STAT 11/18/2024 7:4 8 AM CDT ECG 12-LEAD STAT 11/18/2024 7:24 AM CDT from Last 3 Months Results * PRO-BRAIN NATRIURETIC PEPTIDE (11/18/2024 7:58 AM CDT) PRO-BRAIN NATRIURETIC PEPTIDE 84 0 - 450 PG/ML 11/18/2024 8:53 AM CDT [facility] Comment: CUT POINTS ESTABLISHED BY INTERNATIONAL [employer]LL[employer]AT[employer] ON NT PROBNP (ICON) STUDY (2006). AGE INDEPENDENT: <300 PG/ML HAS A 99% NEGATIVE PREDICTIVE VALUE FOR EXCLUDING ACUTE CHF <50 YEARS: >450 PG/ML IS CONSISTENT WITH ACUTE CHF 50-75 YEARS: >900 PG/ML IS CONSISTENT WITH ACUTE CHF >75 YEARS: >1800 PG/ML IS CONSISTENT WITH ACUTE CHF IN PATIENTS WITH RENAL INSUFFICIENCY (GFR <60), >1200 PG/ML YIELDS A DIAGNOSTIC SENSITIVITY AND SPECIFICITY OF 89% AND 72% FOR ACUTE CHF. 11/18/2024 7:58 AM CDT us David Delgado MD LABORATORY Final Result [facility] [address] [place] [address] [place] [address], [place] * (ABNORMAL) URINALYSIS AUTO DIP (11/18/2024 7:58 AM CDT) COLOR (U) LIGHT YELLOW(A) YELLOW 11/18/2024 8:19 AM CDT [facility] TRANSPARENCY CLEAR CLEAR 11/18/2024 8:19 AM CDT [facility] SPECIFIC GRAVITY (U) 1.009 1.001 - 1.030 11/18/2024 8:19 AM CDT [facility] U PH 6.5 5.0 - 9.0 11/18/2024 8:19 AM CDT [facility] LEUKOCYTES (U) 1+(A) NEGATIVE 11/18/2024 8:19 AM CDT [facility] NITRITES NEGATIVE NEGATIVE 11/18/2024 8:19 AM CDT [facility] PROTEIN RANDOM (U) NEGATIVE NEGATIVE 11/18/2024 8:19 AM CDT [facility] GLUCOSE (U) NORMAL NORMAL 11/18/2024 8:19 AM CDT [facility] KETONES MG/DL (U) NEGATIVE NEGATIVE 11/18/2024 8:19 AM CDT [facility] UROBILINOGEN NORMAL NORMAL EU/DL 11/18/2024 8:19 AM CDT [facility] BILIRUBIN (U) NEGATIVE NEGATIVE 11/18/2024 8:19 AM CDT [facility] BLOOD (U) NEGATIVE NEGATIVE 11/18/2024 8:19 AM CDT [facility] URINE MICROSCOPIC URINE MICROSCOPIC TO FOLLOW. 11/18/2024 8:19 AM CDT [facility] URINE, STRAIGHT CATH 11/18/2024 7:58 AM CDT us David Delgado MD URINE ORDERABLES Final Result [facility] [address] [place] [address] [place] [address], [place] * KETONE BODYS QUALITATIVE (11/18/2024 7:58 AM CDT) ACETONE S/P/B NEGATIVE NEGATIVE 11/18/2024 9:16 AM CDT [facility] 11/18/2024 7:58 AM CDT us David Delgado MD LABORATORY Final Result Performing Organization Address [facility]/ZIP Co de Phone Number [facility] [address] [place] [address], [place] * (ABNORMAL) URINALYSIS MICRO ONLY (11/18/2024 7:58 AM CDT) WBC/HPF 3 <6 /HPF 11/18/2024 2:45 PM CDT [facility] RBC/HPF 1 <6 /HPF 11/18/2024 2:45 PM CDT [facility] MUCUS RARE /LPF 11/18/2024 2:45 PM CDT [facility] BACTERIA (U) RARE(A) NONE /HPF 11/18/2024 2:45 PM CDT [facility] SQUAMOUS EPITHELIALS RARE /HPF 11/18/2024 2:45 PM CDT [facility] 11/18/2024 7:58 AM CDT us David Delgado MD URINE ORDERABLES Final Result Performing Organization Address City/[facility]/ZIP Co de Phone Number [facility] [address] [place] [address], [place] [phone] * (ABNORMAL) COMPREHENSIVE METABOLIC PANEL (11/18/2024 7:58 AM CDT) GLUCOSE 106(H) 70 - 99 MG/DL 11/18/2024 8:53 AM CDT [facility] BUN 8 7 - 18 MG/DL 11/18/2024 8:53 AM CDT [facility] CREATININE S/P/B 0.72 0.50 - 1.20 MG/DL 11/18/2024 8:53 AM CDT [facility] SODIUM S/P/B 138 136 - 145 MMOL/L 11/18/2024 8:53 AM CDT [facility] POTASSIUM S/P/B 3.6 3.5 - 5.1 MMOL/L 11/18/2024 8:53 AM CDT [facility] CHLORIDE S/P/B 102 100 - 108 MMOL/L 11/18/2024 8:53 AM CDT [facility] CO2 29.5 21.0 - 32.0 MMOL/L 11/18/2024 8:53 AM CDT [facility] CALCIUM S/P/B 9.6 8.5 - 10.1 MG/DL 11/18/2024 8:53 AM CDT [facility] BILIRUBIN TOTAL S/P/B 1.2 0.2 - 1.2 MG/DL 11/18/2024 8:53 AM CDT [facility] Comment: THIS ASSAY IS NOT RECOMMENDED FOR PATIENTS UNDERGOING TREATMENT WITH ELTROMBOPAG DUE TO THE POTENTIAL FOR FALSELY ELEVATED RESULTS. TOTAL PROTEIN S/P/B 7.7 6.4 - 8.2 G/DL 11/18/2024 8:53 AM CDT [facility] ALBUMIN S/P/B 3.9 3.4 - 5.0 G/DL 11/18/2024 8:53 AM CDT [facility] AST 16 15 - 37 U/L 11/18/2024 8:53 AM CDT [facility] ALT 20 14 - 55 U/L 11/18/2024 8:53 AM CDT [facility] ALKALINE PHOSPHATASE S/P/B 94 50 - 136 U/L 11/18/2024 8:53 AM CDT [facility] ANION GAP 6.5 5.0 - 15.0 MMOL/L 11/18/2024 8:53 AM CDT [facility] BUN CREATININE RATIO 11.1 6 - 26 11/18/2024 8:53 AM CDT [facility] A/G RATIO 1.0 1.0 - 2.5 RATIO 11/18/2024 8:53 AM CDT [facility] GFR ESTIMATE 84(L) >90 ML/MIN/1.7 3 M2 11/18/2024 8:53 AM CDT [facility] Comment: NOTE: eGFR is not calculated for patients <18 years of age. This is an estimated GFR calculation using the new CKD EPI creatinine equation without race and so does not require a correction factor for race. This estimated GFR should not be used for calculating drug doses. 11/18/2024 7:58 AM CDT David Delgado MD LABORATORY Final Result Performing Organization Address [facility] Co de Phone Number [facility] [address] [address], * LACTIC ACID - SINGLE (11/18/2024 7:58 AM CDT) LACTIC ACID VENOUS 1.3 0.5 - 2.0 MMOL/L 11/18/2024 9:00 AM CDT [facility] 11/18/2024 7:58 AM CDT David Delgado MD LABORATORY Final Result Performing Organization Address [facility] Co de Phone Number [facility] [address] [place] [address], * (ABNORMAL) CBC W/DIFF AUTOMATED (11/18/2024 7:58 AM CDT) WBC 6.36 4.50 - 11.00 x10'3/uL 11/18/2024 8:12 AM CDT [facility] RBC 5.60(H) 4.00 - 5.20 x10'6/uL 11/18/2024 8:12 AM CDT [facility] HGB 17.2(H) 12.0 - 16.0 G/DL 11/18/2024 8:12 AM CDT [facility] HCT 51.5(H) 38.0 - 48.0 % 11/18/2024 8:12 AM CDT [facility] MCV 92.0 80.0 - 100.0 FL 11/18/2024 8:12 AM CDT [facility] MCH 30.7 26.0 - 34.0 PG 11/18/2024 8:12 AM CDT [facility] MCHC 33.4 31.0 - 37.0 G/DL 11/18/2024 8:12 AM CDT [facility] RDW 12.8 11.6 - 14.8 % 11/18/2024 8:12 AM CDT [facility] PLT 208 130 - 400 x10'3/uL 11/18/2024 8:12 AM CDT [facility] MPV 9.7 7.0 - 12.0 FL 11/18/2024 8:12 AM CDT [facility] CBC COMMENT AUTOMATED RBC MORPHOLOGY AND PLATELET EVALUATION NORMAL 11/18/2024 8:12 AM CDT [facility] NEUTROPHILS % 73.1 40.0 - 74.0 % 11/18/2024 8:12 AM CDT [facility] LYMPHOCYTES % 14.9 14.0 - 46.0 % 11/18/2024 8:12 AM CDT [facility] MONOCYTES % 9.0 4.0 - 13.0 % 11/18/2024 8:12 AM CDT [facility] EOSINOPHILS 1.6 0.0 - 7.0 % 11/18/2024 8:12 AM CDT [facility] BASOPHILS 0.8 0.0 - 3.0 % 11/18/2024 8:12 AM CDT [facility] IMMATURE GRANS % 0.6(H) 0.0 - 0.43 % 11/18/2024 8:12 AM CDT [facility] NRBC % 0.0 % 11/18/2024 8:12 AM CDT [facility] ABS. NEUTROPHILS TOTAL 4.65 1.69 - 7.81 x10'3/uL 11/18/2024 8:12 AM CDT [facility] ABS. LYMPHOCYTES 0.95 0.21 - 5.42 x10'3/uL 11/18/2024 8:12 AM CDT [facility] ABS. MONOCYTES 0.57 0.04 - 1.37 x10'3/uL 11/18/2024 8:12 AM CDT [facility] ABS. EOSINOPHILS 0.10 0.00 - 0.68 x10'3/uL 11/18/2024 8:12 AM CDT [facility] ABS. BASOPHILS 0.05 0.00 - 0.08 x10'3/uL 11/18/2024 8:12 AM CDT [facility] ABS. IMMATURE GRANULOCYTES 0.04 0.00 - 0.06 x10'3/uL 11/18/2024 8:12 AM CDT [facility] ABS. NUCLEATED RBC'S 0.00 0.00 - 0.01 x10'3/uL 11/18/2024 8:12 AM CDT [facility] 11/18/2024 7:58 AM CDT us David Delgado MD LABORATORY Final Result [address] [place] [address], * TROPONIN, QUANT (11/18/2024 7:58 AM CDT) Pathologist [facility] TROPONIN I HIGH SENSITIVITY 5 0 - 54 ng/L 11/18/2024 8:53 AM CDT [facility] Comment: HIGH DOSES OF BIOTIN, TROPONIN-SPECIFIC AUTOANTIBODIES, AND ANTIBODY THERAPY CONTAINING HAMA MAY INTERFERE WITH THIS TEST RESULT. CORRELATION TO CLINICAL HISTORY AND PRESENTATION RECOMMENDED. 11/18/2024 7:58 AM CDT David Delgado MD LABORATORY Final Result Performing Organization Address [facility]/ZIP Co de Phone Number [address] [place] [address], [place] * (ABNORMAL) CK (CPK) (11/18/2024 7:58 AM CDT) CPK 31(L) 35 - 232 U/L 11/18/2024 8:53 AM CDT [facility] 11/18/2024 7:58 AM CDT David Delgado MD LABORATORY Final Result Performing Organization Address [facility] de Phone Number [address] [place] [address], [place] * XR CHEST PORTABLE (11/18/2024 7:48 AM CDT) Anatomical Region Laterality Modality Chest Computed Tomogra phy 11/18/2024 7:50 AM CDT Impressions 11/18/2024 7:50 AM CDT IMPRESSION: No acute findings Ordered By: DAVID DELGADO Interpreted By: Bradley Bain MD, 11/18/2024 7:50 AM Narrative 11/18/2024 7:50 AM CDT [address] [place] [address] SINGLE VIEW OF THE CHEST Clinical history: Generalized weakness Comparison: September 21, 2024 A single view of the chest demonstrates the cardiac silhouette to be normal in size and appearance. The pulmonary vessels are normally distributed. The Lungs are clear. No consolidations or effusions are seen. Procedure Note Bradley Bain MD - 11/18/2024 [facility] [address] [place] [address] SINGLE VIEW OF THE CHEST Clinical history: Generalized weakness Comparison: September 21, 2024 A single view of the chest demonstrates the cardiac silhouette to benormal in size and appearance. The pulmonary vessels are normallydistributed. The Lungs are clear. No consolidations or effusions are seen. IMPRESSION: No acute findings Ordered By: DAVID DELGADO Interpreted By: Bradley Bain MD, 11/18/2024 7:50 AM David Delgado MD GENERAL IMAGING Final Result * ECG 12 lead (11/18/2024 7:24 AM CDT) 11/18/2024 7:24 AM CDT Narrative [facility] - 11/19/2024 6:18 AM CDT [facility] Test Date: 2024-11-18 Pat Name: MERLY WIGGINS Department: 100 Room: EDBB Gender: Female [employer]: : 1945 Requested By: DAVID DELGADO Order Number: [id number] Reading MD: Bandar Rhoades Measurements Intervals Grethel Rate: 80 P: 81 NM: 196 QRS: 35 QRSD: 84 T: 81 QT: 355 QTc: 412 Interpretive Statements SINUS RHYTHM MINIMAL ST DEPRESSION [0.025+ mV ST DEPRESSION] Procedure Note Bandar Rhoades MD - 11/19/2024 [facility] Test Date: 2024-11-18 Pat Name: MERLY WIGGINS Department: 100 Room: EDBB Gender: Female [employer]: : 1945 Requested By: DAVID DELGADO Order Number: [id number] Reading MD: Bandar Rhoades Measurements Intervals Grethel Rate: 80 P: 81 NM: 196 QRS: 35 QRSD: 84 T: 81 QT: 355 QTc: 412 Interpretive Statements SINUS RHYTHM MINIMAL ST DEPRESSION [0.025+ mV ST DEPRESSION] us David Delgado MD ECG ORDERABLES Final Result [facility] [place] [facility] [address] [place] [address] from Last 3 Months Insurance [facility] Member Subscriber Plan / Payer (Ef fective 2015-Present) Name:Merly Wiggins Relation to Subscriber:Self Name:Merly Wiggins Payer ID:Not on file Group ID:[id number] Type:Not on file Address: [address] [place] [address] MEDICARE Advance Directives * Full Code (Latest Code Status on File) Date Activated Date Inactivated Comments 02/09/2022 5:37 PM 11/26/2022 3:46 PM Care Teams Ferry Hand Relationship Specialty Start Date End Date Sreekanth Cartagena MD PCP - General INTERNAL MEDICINE 05/30/21
--- OUTSIDE RECORDS SUMMARY | 2024-12-31 10:48 | XMS_ITS | Encounter Summary ---
Author Organization [facility] Address [address] [place] [address] Care Team Providers Care Jammer Operator Name Role Phone Sreekanth Cartagena MD Primary Care Provider [phone] Encounter Details Date Type Department Care Team (Latest Contact Info) Description 10/30/2021 MyCYour Image by [place] Message Enc [facility] - [address], [address] [place] [id number] Radha Frias MD [address] [place] [address] not feeling great Social History Tobacco Use Types Packs/Day Years Used Date Smoking Tobacco: Never Smokeless Tobacco: Never Alcohol Use Standard Drinks/Week Comments Not Currently 0 (1 standard drink = 0.6 oz pur e alcohol) Comments Unknown Sex and Gender Information Value Date Recorded Sex Assigned at Female 07/23/2024 2:54 PM SHIP W[employer]ER Legal Sex Female 7:59 AM CDT Gender Identity Not on file Sexual Orientation Not on file COVID-19 Exposure Response Date Recorded In the last 10 days, have yo u been in contact with someone who was confirmed or suspected to have Coronavirus/COVID-19? No / Unsure 10/24/2021 2:25 PM CDT documented as of this encounter Plan of Treatment Not on file documented as of this encounter Visit Diagnoses Not on filedocumented in this encounter Additional Health Concerns Infection Onset Date Last Indicated Resolved Time COVID-19 Rule Out 12/30/2022 12/30/202212/3012/30/2022 4:54 PM CDT COVID-19 Rule Out 07/23/2024 07/23/2024 07/23/2024 4:32 PM SHIP WIRER COVID-19 Rule Out 09/21/2024 09/21/2024 09/21/2024 5:22 PM CDT Respiratory Rule Out 09/21/2024 09/21/2024 025 5:29 PM CDT documented as of this encounter Care Teams Jammer Operator Relationship Specialty Start Date End Date Sreekanth Cartagena MD PCP - General INTERNAL MEDICINE 05/30/21 documented as of this encounter
--- OUTSIDE RECORDS SUMMARY | 2024-12-31 10:48 | XMS_ITS | Encounter Summary ---
Author Organization [facility] Address [address] [place] [address] Care Team Providers Care Combination Presser Name Role Phone Sreekanth Cartagena MD Primary Care Provider [phone] Encounter Details Date Type Department Care Team (Latest Contact Info) Description 10/19/2021 [employer] Message Enc [facility] Multispecialty Care - [facility] [address], [address] [place] [id number] Radha Frias MD [address] [place] [address] Two small strokes Social History Tobacco Use Types Packs/Day Years Used Date Smoking Tobacco: Never Smokeless Tobacco: Never Alcohol Use Standard Drinks/Week Comments Not Currently 0 (1 standard drink = 0.6 oz pur e alcohol) Comments Unknown Sex and Gender Information Value Date Recorded Sex Assigned at Female 07/23/2024 2:54 PM [employer] Legal Sex Female 7:59 AM CDT Gender Identity Not on file Sexual Orientation Not on file COVID-19 Exposure Response Date Recorded In the last 10 days, have yo u been in contact with someone who was confirmed or suspected to have Coronavirus/COVID-19? No / Unsure 10/19/2021 2:30 PM CDT documented as of this encounter Progress Notes * Saul Smith MD - 10/19/2021 10:53 AM CDT Unfortunately we cannot give an exact date as to when the strokes might have happened documented in this encounter Plan of Treatment Not on file documented as of this encounter Visit Diagnoses Not on filedocumented in this encounter Additional Health Concerns Infection Onset Date Last Indicated Resolved Time COVID-19 Rule Out 12/30/2022 12/30/2022 12/30/2022 4:54 PM CDT COVID-19 Rule Out 07/23/2024 07/23/2024 07/23/2024 4:32 PM OIL REFINER COVID-19 Rule Out 09/21/2024 09/21/2024 09/21/2024 5:22 PM CDT Respiratory Rule Out 09/21/2024 09/21/2024 025 5:29 PM CDT documented as of this encounter Care Teams Combination Presser Relationship Specialty Start Date End Date Sreekanth Cartagena MD PCP - General INTERNAL MEDICINE 05/30/21 documented as of this encounter
[2024-12-31 11:07] LABS: Estimated Glomerular Filt Rate > 60
== END 2024-12-31 10:46 | disposition home or self-care (01) ==
PROVIDERS: PCP Internal Medicine; Visit Provider Internal Medicine
DX: R63.4 Abnormal weight loss (principal); Z90.49 Acquired absence of other specified parts of digestive tract
CPT/HCPCS: 71260; 74177; Q9967